=== PATIENT | female | born 1940 | race Caucasian/White ===

== ENCOUNTER → 2020-09-17 09:13 | Outpatient (BNVA) | payer MEDICARE, SELFPAY | PROVIDERS: Family Provider Registered Nurse; PCP Internal Medicine; Visit Provider Nurse Practitioner Family | DX: I50.9 Heart failure, unspecified (principal) | CPT/HCPCS: 80048 ==

== ENCOUNTER 2020-10-02 13:28 | Outpatient (CLI) | payer MEDICARE, SELFPAY ==
--- NOTE | 2020-10-02 13:30 | USCV_ITS ---
Genaro Aparicio Age: 80 Gender: F : 1940 Exam Date: 10/02/2020 13:27 Ordering Phys: Bisi Garcia Technologist: [place] [facility] [place]ication: PVD RIGHT LEFT Brachial 142.00 mmHg Brachial 146.00 mmHg Pressure (mmHg) Waveform Pressure (mmHg) Waveform 169.00 LINE LOCATOR 171.00 153.00 DPA 145.00 1.16 Ankle/Brachial Index 1.17 81.00 Pre-Exercise Toe Pressure 73.00 0.55 Pre-Exercise Toe/Brachial Index 0.50 FINDINGS Normal resting ABIs bilaterally Diminished resting TBIs bilaterally CONCLUSIONS Normal resting ABIs with abnormal resting TBIs, suggestive of bilateral mild to moderate peripheral artery disease possibly involving the distal vessels Dr Svetlana Abarca MD FAC (Electronically Signed) Final Date: 02 October 2020 20:21 S
--- NOTE | 2020-10-02 14:15 | USCV_ITS ---
Genaro Aparicio Age: 80 Gender: F : 1940 Exam Date: 10/02/2020 13:38 Ordering Phys: Bisi Garcia Technologist: Alexia Ross Exam Location: [facility] [place] Indication: HEART FAILURE BP: 146 / 84 HR: 74 Rhythm: Sinus Technical Quality: Suboptimal MEASUREMENTS (Male / Female) Normal Values 2D ECHO LV Diastolic Diameter PLAX 5.6 cm 4.2 - 5.9 / 3.9 - 5.3 cm LV Chamber Size 3.9 cm IVS Diastolic Thickness 0.9 cm 0.6 - 1.0 / 0.6 - 0.9 cm LVPW Diastolic Thickness 1.3 cm 0.6 - 1.0 / 0.6 - 0.9 cm RV Chamber Size 3.8 cm LVOT Diameter 2.0 cm LV Ejection Fraction MOD 2C 9.3 % LV Ejection Fraction 2C AL 9.2 % LA Diameter 4.2 cm LA Width 4.0 cm LA Height 4.5 cm RA Width 2.7 cm RA Height 3.1 cm Aorta at Sinotubular Diameter 2.4 cm M-MODE LV Diastolic Diameter MM 7.2 cm 4.2 - 5.9 / 3.9 - 5.3 cm LV Systolic Diameter MM 6.1 cm LV Ejection Fraction MM Teich 31.0 % IVS Diastolic Thickness MM 0.7 cm 0.6 - 1.0 / 0.6 - 0.9 cm IVS Systolic Thickness MM 1.1 cm LVPW Diastolic Thickness MM 0.9 cm 0.6 - 1.0 / 0.6 - 0.9 cm LVPW Systolic Thickness MM 0.9 cm Aortic Annulus Diameter 2.6 cm LA Ao Ratio MM 1.6 MV E Point Septal Separation 1.3 cm DOPPLER AV Peak Velocity 338.0 cm/s LVOT Peak Velocity 116.0 cm/s AV Area Cont Eq vti 1.2 cm squared AV Area Cont Eq pk 1.1 cm squared MV Area PHT 5.0 cm squared Mitral E to A Ratio 1.6 MV E' Velocity 61.0 cm/s Mitral E to MV E' Ratio 14.0 Mitral E to LV E' Lateral Ratio 14.6 Mitral E to LV E' Septal Ratio 13.7 TR Peak Velocity 311.0 cm/s TR Peak Gradient 38.7 mmHg TV Peak E Velocity 75.0 cm/s Right Atrial Pressure 3.0 mmHg Pulmonary Artery Systolic Pressu 41.7 mmHg PV Peak Velocity 79.0 cm/s RV Acceleration Time 0.1 s RV Ejection Time 0.3 s RV AcT/ET 0.3 FINDINGS Left Ventricle Moderately dilated left ventricle. Severely decreased left ventricular function. Left ventricular ejection fraction is estimated at 20 %. Global left ventricular hypokinesis. Abnormal septal motion consistent with conduction abnormality. Grade II diastolic dysfunction, moderately elevated filling pressures. Right Ventricle Upper normal right ventricular size and low normal systolic function. Right ventricular systolic pressure 41.7 mmHg. Right Atrium Normal right atrial size. Right atrial pressure estimated at 8 mmHg. Left Atrium Moderately increased left atrial size. Mitral Valve Moderate mitral annular calcification. Mildly thickened mitral valve. Restricted movement of posterior mitral leaflet. No mitral valve stenosis. Mild to moderate posteriorly directed mitral valve regurgitation. Aortic Valve Markedly thickened and calcified trileaflet aortic valve. Aortic valve stenosis visually appears to be severe. Possibly severe aortic valve stenosis, peak velocity 3.5 m/s, peak gradient 50 mmHg, mean gradient 20.5 mmHg, AMELIA 0.9 cm squared. Aortic valve index of 0.5 cm squared/m squared. Dimensionless valve index of 0.26. Stroke-volume index of 33 mL/m squared/beat. Tricuspid Valve Structurally normal tricuspid valve. Moderate tricuspid valve regurgitation. Pulmonic Valve Structurally normal pulmonic valve. No pulmonary valve stenosis. Mild pulmonary valve regurgitation. Pericardium No pericardial effusion. Aorta Normal size aortic root and proximal ascending aorta. CONCLUSIONS 1. Moderately dilated left ventricle. Severely decreased left ventricular function. Left ventricular ejection fraction is estimated at 20 %. Global left ventricular hypokinesis. Grade II diastolic dysfunction, moderately elevated filling pressures. 2. Upper normal right ventricular size and low normal systolic function. 3. Mild pulmonary hypertension with pulmonary artery pressure estimated at 42 mmHg. 4. Restricted movement of posterior mitral leaflet. Mild to moderate posteriorly directed mitral valve regurgitation. 5. Possibly severe aortic valve stenosis, peak velocity 3.5 m/s, peak gradient 50 mmHg, mean gradient 20.5 mmHg, AMELIA 0.9 cm squared (LVOT=21 mm). Aortic valve index of 0.5 cm squared/m squared. Dimensionless valve index of 0.26. Stroke-volume index of 33 mL/m squared/beat. 6. Moderate tricuspid valve regurgitation. 7. When compared to previous echocardiogram dated 06/28/2017, aortic valve stenosis has worsened and left ventricular systolic function has dropped. Georgiana Jensen MD (Electronically Signed) Final Date: 07 October 2020 18:22 S
== END 2020-10-02 13:29 | disposition home or self-care (01) ==
PROVIDERS: PCP Registered Nurse; Visit Provider Nurse Practitioner Family
DX: I73.9 Peripheral vascular disease, unspecified (principal); I50.9 Heart failure, unspecified; I27.0 Primary pulmonary hypertension; I08.3 Combined rheumatic disorders of mitral, aortic and tricuspid valves
CPT/HCPCS: 93306; 93922

== ENCOUNTER 2020-10-08 11:11 | Inpatient (IN) | payer MEDICARE, SELFPAY ==
[2020-10-08 11:15] VITALS: BP 135/87; PULSE 86; RESP 14; O2SAT 97; BMI 38.0
--- NOTE | 2020-10-08 11:34 | CT_ITS ---
WS: [id number] CT HEAD TECHNIQUE: Noncontrast CT of the head obtained from the skullbase to the vertex. CLINICAL INFORMATION: altered mental status COMPARISON: None. DLP: 908.[address] scans at [facility] use at least one of these dose optimization techniques: automat ed exposure control; mA and/or kV adjustment per patient size (includes targeted exams where dose is matched to clinical indication); or iterative reconstruction. FINDINGS: No evidence of intracranial hemorrhage or mass effect. Ventricular system and basal cisterns are young nt. Moderate small vessel changes with moderate parenchymal volume loss. 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 Chronic lacunar infarcts in the left cerebellum. Intracra nial vascular calcification. No extra-axial fluid collections. No evidence of mass or mass effect. Paranasal sinuses and mastoid air cells are well aerated. .Normal visualized soft tissues. CT/CT head wo con* [id number] IMPRESSION: 1. No evidence of intracranial hemorrhage or mass effect. 2. Moderate small vessel changes. Moderate parenchymal volume loss. 3. Chronic lacunar infarcts in the right basal ganglia and right thalamus. 4. Chronic lacunar infarcts left greater than right cerebellum. 5. No acute intracranial findings. Notified Fili Schuler MD at 10/08/2020 12:22 PM.
--- NOTE | 2020-10-08 11:34 | XR_ITS ---
WS: [id number] Exam: XR chest 1V portable [id number] Date/Time of Exam: 10/08/2020 11:40 AM Reason For Exam: altered mental status. H/o CHF Comparison 07/05/2017. The lungs are fully expanded. There are chronic changes in the mid and lower left lung zone. No acute consolidating pneumonia is noted. No pleural effusion. Heart size is top limits normal. Signs of pre vious cardiac surgery and median sternotomy. XR/XR chest 1V portable [id number] IMPRESSION: 1. Chronic interstitial changes seen in the mid and lower left lung zone. 2. No acute cardiopulmonary finding. No change.
--- NOTE | 2020-10-08 11:40 | ECG_ITS ---
[facility] Test Date: 2020-10-08 Pat Name: Genaro Aparicio Department: Room: Gender: Female Physician Chief Of Pathology: : 1940 Requested By: Fili Schuler Order Number: [id number] Leal MD: Svetlana Abarca M.D. Measurements Intervals [place]all Rate: 61 P: 98 WA: 152 QRS: -17 QRSD: 142 T: 100 QT: 435 QTc: 439 Interpretive Statements SINUS RHYTHM INTRAVENTRICULAR CONDUCTION DELAY [130+ ms QRS DURATION] Compared to ECG 07/05/2017 11:13:41 ST (T wave) deviation no longer present Electronically Signed On 10-08-2020 23:49:[address] CONTRACTOR by Svetlana Abarca M.D. [id number]
--- NOTE | 2020-10-08 11:46 | ED_ITS ---
HPI - Altered Mental Status General: Chief Complaint: Altered Mental Status Stated Complaint: ACUTE MENTAL STATUS CHANGE, SENT FROM [facility] Time Seen by Provider: 10/08/20 11:15 History of Present Illness: HPI narrative: The patient is a 80-year-old female with past medical history CHF, CAD, peripheral edema, history of [place], CABG, and PCI. She also has diabetes, hypertension, and aortic stenosis. She comes to the ER sent by her molding machine setter during a visit as he noted her to be less responsive than usual, noted abdominal distention and he noted jaundice in her face. He has been seeing her for shortness of breath. In the ER she denies chest pain and shortness of breath but does admit being generally weak the patient's daughter says she is not acting like her usual self and has had a steady decline for the past for 5 days. She noted that she ate ham on and has since had worsening of her swelling bilaterally in her lower extremities. MD complaint: altered mental status, confusion and decreased responsiveness Onset (ago): day(s) (5) Timing confirmed by: family member Severity: moderate Review of Systems General: Reports: ROS unobtainable due to mental status (altered) Narrative: She denies chest pain, shortness of breath, nausea, vomiting, diarrhea, abdominal pain. Review of systems limited due to her altered mental status and decreased responsiveness. Admits swelling to legs as well bilaterally. Card: Reports: edema and swelling of feet/ankles; Denies: chest pain [facility] ED PFSH: Medical History Coronary artery disease Essential (primary) hypertension Headache, migraine Hx of myocardial infarction Hyperlipidemia, unspecified Hyperthyroidism Restless legs syndrome Type 2 diabetes mellitus without complications Surgical History History of coronary artery bypass graft CABG [id number] Family History Other CAD (coronary artery disease) Hypertension Myocardial infarct Social History (Updated 10/08/20 @ 11:21 by Trino Larose RN) Smoking and tobacco status: never smoked Alcohol intake: current Alcohol intake frequency: holidays/special occasions only Physical Exam Const: COMMON NORMALS: healthy appearing, alert (Slightly decreased responsiveness and confusion present) and well nourished GENERAL APPEARANCE: cooperative and comfortable ORIENTATION/CONSCIOUSNESS: Yes oriented to person, Yes oriented to place and Yes confused HENMT: COMMON NORMALS: normocephalic, external ears normal and Normal external nose present HEAD & SCALP: normal to inspection and normocephalic NOSE: Normal external nose present EXTERNAL EAR: Yes external ears normal MOUTH: Normal oral and palatal mucosa present THROAT: posterior oropharynx normal Eye: COMMON NORMALS: Equal, round and reactive pupils present and EOMs intact bilaterally GENERAL EYE: appearance normal, both eyes and all related structures PUPIL: Yes Equal, round and reactive pupils present Neck/C-Spine: COMMON NORMALS: full ROM, no lymphadenopathy, no meningeal signs and no JVD GENERAL: Yes normal visual inspection Lymph: LYMPHATIC: no lymphadenopathy noted Chest: COMMONS NORMALS: normal inspection of the chest and normal palpation of entire chest wall Resp: COMMON NORMALS: normal respiratory effort, No retractions, No use of accessory muscles, clear to auscultation bilaterally and percussion normal EFFORT & INSPECTION: Yes able to speak in complete sentences AUSCULTATION: clear to auscultation bilaterally and diminished lung sounds PERCUSSION: percussion normal Cardio: COMMON NORMALS: no JVD, regular rate, regular rhythm, S1 normal heart sound present, S2 normal heart sound present and Peripheral pulses 2+ throughout RATE: regular rate RHYTHM: regular rhythm HEART SOUNDS: S1 normal heart sound present and S2 normal heart sound present PERIPHERAL PULSES: Peripheral pulses 2+ throughout OTHER: Systolic murmur 2 out of 6 present. EOMI aortic stenosis GI: COMMON NORMALS: Soft to palpation, non-tender and no masses INSPECTION: Yes normal to inspection PALPATION: Yes Soft to palpation OTHER: Mild abdominal distention. Soft, nontender. : COMMON NORMALS: Yes no CVA tenderness BLADDER/KIDNEY EXAM: Yes no CVA tenderness Back/Pelvis: COMMON NORMALS: no CVA tenderness, thoracic and lumbar spine normal to inspection, no thoracic nor lumbar tenderness and thoraco-lumbar ROM normal Extremity: COMMON NORMALS: normal to inspection, full ROM, capillary refill normal, no joint enlargement and no pedal edema GENERAL: Yes normal exam except as noted OTHER: 2+ pitting edema to knees bilaterally. This is a chronic thing but worse than her baseline per family member. Neuro: COMMON NORMALS: CN's II-XII intact bilaterally, moves all extremities, no focal motor deficits and no sensory deficits noted SENSORIUM/ORIENTATION: Yes oriented to person, Yes oriented to place and Yes somnolent MENINGEAL SIGNS: Yes no meningeal signs SPEECH: speech normal GAIT: Yes Unable to assess gait MOTOR EXAM: 5/5 motor strength present throughout (3-4 out of 5 in all extremities. No focal weakness noted) Psych: COMMON NORMALS: cooperative, normal affect and speech normal ATTITUDE: Yes calm SPEECH: Yes normal speech Skin: COMMON NORMALS: no rashes or lesions noted GENERAL SKIN EXAM: no rashes or lesions noted Course Vital Signs: Vital signs: Vital Signs Pulse Rate 86 10/08/20 11:15 Respiratory Rate 14 10/08/20 11:15 Blood Pressure 135/87 10/08/20 11:15 Pulse Oximetry 97 10/08/20 11:15 MDM - Altered Mental Status MDM Narrative: Medical decision making narrative: The patient has 2+ pitting edema to her knees and some belly distention as well. Her BNP is over 40,000. Her clinical situation is likely a CHF exacerbation. Given 40 IV Lasix in the ER and discussed with Dr. Asif who accepts care. Also she has acute kidney injury possibly from cardiorenal syndrome versus other. Also she has elevated total bilirubin. Both of these problems were discussed with the hospitalist who takes over care. Differential Diagnosis: Differential diagnosis altered mental status: Likely altered mental status and delirium Lab Data: Labs: Lab Results 10/08/20 10/08/20 10/08/20 Range/Units 11:18 11:18 11:18 WBC 7.6 (4.0-10.0) 10^3/ uL RBC 3.35 L (4.1-5.3) 10^6/u L Hgb 10.5 L (11.5-15.3) g/dL Hct 34.8 L (37.0-47.0) % MCV 103.9 H (81-99) fL MCH 31.3 (28.0-34.0) pg MCHC 30.2 (30.0-36.0) g/dL RDW 19.6 H (12.1-15.1) % Plt Count 239 (130-400) 10^3/c mm MPV 10.4 (7.4-10.4) fL Neut % (Auto) 65.0 % Lymph % (Auto) 18.6 % [place] % (Auto) 11.6 % Eos % (Auto) 3.7 % Baso % (Auto) 0.7 % Neut # (Auto) 4.97 (1.8-7.7) 10^3/u L Lymph # (Auto) 1.4 (0.8-4.8) 10^3/u L [place] # (Auto) 0.9 (0.2-0.9) 10^3/u L Eos # (Auto) 0.3 (0.0-0.8) 10^3/u L Baso # (Auto) 0.1 (0.0-0.1) 10^3/u L Nucleated RBC % (a uto) 0 % Nucleated RBCs # 0.0 /100WBC D-Dimer 3.94 H (0-0.59) ug/mIFE U Specimen Type Sample Site ABG pH (7.35-7.45) ABG pCO2 (35-45) mmHg ABG pO2 (80.0-100.0) mmH g ABG HCO3 (22-26) mmol/L ABG O2 Saturation ABG Base Excess (-2.0-2.0) mmol/ L [place] Test A-a O2 Gradient (5-10) mmHg Hematocrit (37-47) % Hgb O2 Saturation (95-100) % Carboxyhemoglobin (0.4-20.1) %THgb Methemoglobin (0.4-1.5) % Total Hemoglobin (12-16) g/dL Ionized Calcium (1.1-1.4) mmol/L O2 Delivery Device FiO2 % Supply Chain Systems Manager ID Sodium 138 (136-145) mmol/L Potassium 4.5 (3.5-5.1) mmol/L Chloride 100 (98-107) mmol/L Carbon Dioxide 27 (22-29) mmol/L Anion Gap 15.5 (5-19) BUN 30 H (8-23) mg/dL Creatinine 1.7 H (0.5-0.9) mg/dL GFR Calculation Not Reportable Glucose 86 (65-115) mg/dL Calculated Osmolal ity 291 (285-295) mOsm/k g Lactate (0.5-2.2) mmol/L Calcium 9.6 (8.5-10.5) mg/dL Total Bilirubin 2.2 H (0.15-1.2) mg/dL AST 31 (0-32) U/L ALT 20 (0-33) U/L Alkaline Phosphata se 92 (35-105) IU/L Ammonia (11-51) umol/L Troponin T Baselin e (0-10) ng/L Troponin T 120 Min cocopah (0-10) ng/L Delta Troponin T (0-10) ABS# NT-Pro-B Natriuret Pep 21618 H (0-450) pg/mL Total Protein 7.0 (6.6-8.7) g/dL Albumin 4.0 (3.5-5.2) g/dL Globulin 3.0 (1.3-4.6) g/dL Urine Color (Yellow) Urine Appearance (CLEAR) Urine pH (5-7) Ur Specific Gravit y (1.005-1.030) Urine Protein (Negative) Urine Glucose (UA) (Normal) Urine Ketones (Negative) Urine Blood (Negative) Urine Nitrate (Negative) Urine Bilirubin (Negative) Urine Urobilinogen (Negative) mg/dL Ur Leukocyte Kalani ase (Negative) 10/08/20 10/08/20 10/08/20 Range/Units 11:18 11:18 11:40 WBC (4.0-10.0) 10^3/ uL RBC (4.1-5.3) 10^6/u L Hgb (11.5-15.3) g/dL Hct (37.0-47.0) % MCV (81-99) fL MCH (28.0-34.0) pg MCHC (30.0-36.0) g/dL RDW (12.1-15.1) % Plt Count (130-400) 10^3/c mm MPV (7.4-10.4) fL Neut % (Auto) % Lymph % (Auto) % [place] % (Auto) % Eos % (Auto) % Baso % (Auto) % Neut # (Auto) (1.8-7.7) 10^3/u L Lymph # (Auto) (0.8-4.8) 10^3/u L [place] # (Auto) (0.2-0.9) 10^3/u L Eos # (Auto) (0.0-0.8) 10^3/u L Baso # (Auto) (0.0-0.1) 10^3/u L Nucleated RBC % (a uto) % Nucleated RBCs # /100WBC D-Dimer (0-0.59) ug/mIFE U Specimen Type Sample Site ABG pH (7.35-7.45) ABG pCO2 (35-45) mmHg ABG pO2 (80.0-100.0) mmH g ABG HCO3 (22-26) mmol/L ABG O2 Saturation ABG Base Excess (-2.0-2.0) mmol/ L [place] Test A-a O2 Gradient (5-10) mmHg Hematocrit (37-47) % Hgb O2 Saturation (95-100) % Carboxyhemoglobin (0.4-20.1) %THgb Methemoglobin (0.4-1.5) % Total Hemoglobin (12-16) g/dL Ionized Calcium (1.1-1.4) mmol/L O2 Delivery Device FiO2 % Supply Chain Systems Manager ID Sodium (136-145) mmol/L Potassium (3.5-5.1) mmol/L Chloride (98-107) mmol/L Carbon Dioxide (22-29) mmol/L Anion Gap (5-19) BUN (8-23) mg/dL Creatinine (0.5-0.9) mg/dL GFR Calculation Glucose (65-115) mg/dL Calculated Osmolal ity (285-295) mOsm/k g Lactate 1.0 (0.5-2.2) mmol/L Calcium (8.5-10.5) mg/dL Total Bilirubin (0.15-1.2) mg/dL AST (0-32) U/L ALT (0-33) U/L Alkaline Phosphata se (35-105) IU/L Ammonia 23 (11-51) umol/L Troponin T Baselin e 34 H (0-10) ng/L Troponin T 120 Min cocopah (0-10) ng/L Delta Troponin T (0-10) ABS# NT-Pro-B Natriuret Pep (0-450) pg/mL Total Protein (6.6-8.7) g/dL Albumin (3.5-5.2) g/dL Globulin (1.3-4.6) g/dL Urine Color (Yellow) Urine Appearance (CLEAR) Urine pH (5-7) Ur Specific Gravit y (1.005-1.030) Urine Protein (Negative) Urine Glucose (UA) (Normal) Urine Ketones (Negative) Urine Blood (Negative) Urine Nitrate (Negative) Urine Bilirubin (Negative) Urine Urobilinogen (Negative) mg/dL Ur Leukocyte Kalani ase (Negative) 10/08/20 10/08/20 10/08/20 Range/Units 12:10 13:26 13:55 WBC (4.0-10.0) 10^3/ uL RBC (4.1-5.3) 10^6/u L Hgb (11.5-15.3) g/dL Hct (37.0-47.0) % MCV (81-99) fL MCH (28.0-34.0) pg MCHC (30.0-36.0) g/dL RDW (12.1-15.1) % Plt Count (130-400) 10^3/c mm MPV (7.4-10.4) fL Neut % (Auto) % Lymph % (Auto) % [place] % (Auto) % Eos % (Auto) % Baso % (Auto) % Neut # (Auto) (1.8-7.7) 10^3/u L Lymph # (Auto) (0.8-4.8) 10^3/u L [place] # (Auto) (0.2-0.9) 10^3/u L Eos # (Auto) (0.0-0.8) 10^3/u L Baso # (Auto) (0.0-0.1) 10^3/u L Nucleated RBC % (a uto) % Nucleated RBCs # /100WBC D-Dimer (0-0.59) ug/mIFE U Specimen Type Arterial Sample Site Radial, right ABG pH 7.39 (7.35-7.45) ABG pCO2 43.5 (35-45) mmHg ABG pO2 80.1 (80.0-100.0) mmH g ABG HCO3 26.3 H (22-26) mmol/L ABG O2 Saturation 95.6 ABG Base Excess 1.1 (-2.0-2.0) mmol/ L [place] Test Pos A-a O2 Gradient 2.2 L (5-10) mmHg Hematocrit 32.6 L (37-47) % Hgb O2 Saturation 94.6 L (95-100) % Carboxyhemoglobin 1.8 (0.4-20.1) %THgb Methemoglobin < 0.0 L (0.4-1.5) % Total Hemoglobin 10.6 L (12-16) g/dL Ionized Calcium 1.2 (1.1-1.4) mmol/L O2 Delivery Device Room air FiO2 21.0 % Supply Chain Systems Manager ID [place] Sodium 140.0 (136-145) mmol/L Potassium 4.1 (3.5-5.1) mmol/L Chloride (98-107) mmol/L Carbon Dioxide (22-29) mmol/L Anion Gap (5-19) BUN (8-23) mg/dL Creatinine (0.5-0.9) mg/dL GFR Calculation Glucose 87.0 (65-115) mg/dL Calculated Osmolal ity (285-295) mOsm/k g Lactate (0.5-2.2) mmol/L Calcium (8.5-10.5) mg/dL Total Bilirubin (0.15-1.2) mg/dL AST (0-32) U/L ALT (0-33) U/L Alkaline Phosphata se (35-105) IU/L Ammonia (11-51) umol/L Troponin T Baselin e (0-10) ng/L Troponin T 120 Min cocopah 29.55 H (0-10) ng/L Delta Troponin T -4.45 L (0-10) ABS# NT-Pro-B Natriuret Pep (0-450) pg/mL Total Protein (6.6-8.7) g/dL Albumin (3.5-5.2) g/dL Globulin (1.3-4.6) g/dL Urine Color Yellow (Yellow) Urine Appearance Clear (CLEAR) Urine pH 5 (5-7) Ur Specific Gravit y 1.015 (1.005-1.030) Urine Protein Neg (Negative) Urine Glucose (UA) Norm (Normal) Urine Ketones Negative (Negative) Urine Blood Neg (Negative) Urine Nitrate Negative (Negative) Urine Bilirubin Neg (Negative) Urine Urobilinogen 1 H (Negative) mg/dL Ur Leukocyte Kalani ase Negative (Negative) Discharge Plan Discharge Patient Disposition: Admitted As Inpatient Clinical Impression: Hyperbilirubinemia Mental status alteration Qualifiers: Altered mental status type: unspecified Qualified Code(s): R41.82 - Altered mental status, unspecified Acute exacerbation of CHF (congestive heart failure) Qualifiers: Heart failure type: unspecified Qualified Code(s): I50.9 - Heart failure, unspecified Acute renal failure Qualifiers: Acute renal failure type: unspecified Qualified Code(s): N17.9 - Acute kidney failure, unspecified Condition: Stable Coding Level of Care Code ED Conditioner Tumbler Operator for Chg Fwd Exam Comprehensive
[2020-10-08 11:47] LABS: Basophils # 0.1 10^3/uL (0.0-0.1); Basophils % 0.7 %; Eosinophils # 0.3 10^3/uL (0.0-0.8); Eosinophils % 3.7 %; Hematocrit 34.8 % (37.0-47.0); Hemoglobin 10.5 g/dL (11.5-15.3); Lymphocytes # 1.4 10^3/uL (0.8-4.8); Lymphocytes % 18.6 %; Mean Corpuscular HGB Conc 30.2 g/dL (30.0-36.0); Mean Corpuscular Hemoglobin 31.3 pg (28.0-34.0); Mean Corpuscular Volume 103.9 fL (81-99); Mean Platelet Volume 10.4 fL (7.4-10.4); Monocytes # 0.9 10^3/uL (0.2-0.9); Monocytes % 11.6 %; Neutrophils # 4.97 10^3/uL (1.8-7.7); Nucleated Red Blood Cells % 0 %; Platelet Count 239 10^3/cmm (130-400); Red Blood Count 3.35 10^6/uL (4.1-5.3); Red Cell Distribution Width 19.6 % (12.1-15.1); White Blood Count 7.6 10^3/uL (4.0-10.0)
[2020-10-08 12:05] LABS: D Dimer 3.94 ug/mIFEU (0-0.59)
[2020-10-08 12:10] LABS: Troponin(5th) Baseline 34 ng/L (0-10)
[2020-10-08 12:11] LABS: Ammonia 23 umol/L (11-51)
--- NOTE | 2020-10-08 12:19 | USCV_ITS ---
Genaro Aparicio Age: 80 Gender: F : 1940 Exam Date: 10/08/2020 12:31 Ordering Phys: Fili Schuler MD Technologist: Angelic Valdez Exam Location: [facility] [place] Indication: BLE swelling eval for dvt HISTORY: Lower extremity swelling. PROCEDURES: Venous duplex imaging was performed in bilateral lower extremities. The following venous structures were evaluated: common femoral vein, profunda vein, proximal portion of the greater saphenous vein, superficial femoral vein, and the popliteal vein. In addition, the posterior tibial veins were evaluated. In addition, the posterior tibial and peroneal trunk were evaluated. FINDINGS: Examination was technically limited due to body habitus. No evidence of DVT seen in any vessel visualized at this time. CONCLUSIONS No evidence of right lower extremity DVT. No evidence of left lower extremity DVT. Brandon Loyd MD (Electronically Signed) Final Date: 08 October 2020 15:35 S
[2020-10-08 12:20] LABS: Alanine Aminotransferase 20 U/L (0-33); Alkaline Phosphatase 92 IU/L (35-105); Anion Gap 15.5 (5-19); Aspartate Amino Transferase 31 U/L (0-32); Blood Urea Nitrogen 30 mg/dL (8-23); Calcium 9.6 mg/dL (8.5-10.5); Carbon Dioxide 27 mmol/L (22-29); Chloride 100 mmol/L (98-107); Glucose 86 mg/dL (65-115); NT Pro B Type Natriuretic Pept 24308 pg/mL (0-450); Osmolality Calculated 291 mOsm/kg (285-295); Potassium 4.5 mmol/L (3.5-5.1); Sodium 138 mmol/L (136-145); Total Bilirubin 2.2 mg/dL (0.15-1.2)
[2020-10-08 12:22] LABS: ABG PCO2 43.5 mmHg (35-45); ABG PH Result 7.39 (7.35-7.45); Alveolar-Arterial Oxygen Gradi 2.2 mmHg (5-10); Arterial Blood Gas Hematocrit 32.6 % (37-47); Base Excess ABG 1.1 mmol/L (-2.0-2.0); Blood Gas Allen Test Pos; Blood Gas Operator Identificat MONRO; Blood Gas Sample Site Radial, right; Blood Gas Sample Type Arterial; Carboxyhemoglobin 1.8 %THgb (0.4-20.1); HCO3 ABG 26.3 mmol/L (22-26); HGB O2 Sat 94.6 % (95-100); Ionized Calcium Level - ABG 1.2 mmol/L (1.1-1.4); Methemoglobin < 0.0 % (0.4-1.5); Oxygen Device ROOM AIR; Oxygen Saturation ABG 95.6; PO2 ABG 80.1 mmHg (80.0-100.0); Potassium Level - ABG 4.1 mmol/L (3.5-5.0); Total Hemoglobin 10.6 g/dL (12-16)
--- NOTE | 2020-10-08 13:40 | ECG_ITS ---
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 Measurements Intervals [place] Rate: 80 P: 53 OR: 188 QRS: -23 QRSD: 150 T: 128 QT: 392 QTc: 454 Interpretive Statements SINUS RHYTHM LEFT BUNDLE BRANCH BLOCK [120+ ms QRS DURATION, 80+ ms Q/S IN V1/V2, 85+ ms R IN I/aVL/V5/V6] Compared to ECG 10/08/2020 13:54:29 Sinus bradycardia no longer present Electronically Signed On 10-09-2020 0:10:31 DIGITAL MARKETING CONSULTANT by Svetlana Abarca M.D. [email or web address]
[2020-10-08 13:48] LABS: Add Urine Microscopic? NO
[2020-10-08 13:53] LABS: Bilirubin Urine Neg (Negative); Blood Urine Neg (Negative); Glucose Urine UA Norm (Normal); Ketones Urine Negative (Negative); Leukocyte Esterase Urine Negative (Negative); Nitrate Urine Negative (Negative); Protein Urine Neg (Negative); Specific Gravity, Urine 1.015 (1.005-1.030); Urine Appearance Clear (CLEAR); Urine Color Yellow (Yellow); Urobilinogen Urine 1 mg/dL (Negative); pH Urine 5 (5-7)
[2020-10-08 14:27] LABS: Troponin 5 2HR 29.55 ng/L (0-10)
[2020-10-08 14:28] LABS: Troponin 5 2HR Delta -4.45 ABS# (0-10)
[2020-10-08] MEDS: FUROsemide 10 mg/mL SDV 4mL 40 MG IVP (14:54)
--- NOTE | 2020-10-08 16:39 | P.HP_ITS ---
Providers/Chief Complaint Primary Care Provider: TIMMY York Chief Complaint: ACUTE MENTAL STATUS CHANGE, SENT FROM [facility] History of Present Illness 80-year-old female with a past medical history significant for anxiety, depres lyndsay, restless leg syndrome, hypothyroidism, hypertension, dyslipidemia, diabetes mellitus, peripheral neuropathy, CVA in 2017, coronary artery disease with history of CABG, and chronic systolic heart failure with and EF of 50% with moderate aortic valve stenosis (AMELIA 1.6cm2) in 2017 which had significantly to an EF of 20% with now severe aortic stenosis (AMELIA 0.5 cm2) who presented to the hospital with altered mental status. She was initially seen for follow up at CHF clinic. Pt was seeing the nurse practitioner routinely for adjustment of diuretics due to fluid retention. Apparently she was noted to be confused as well today Which was more than patients baseline. Per daughter who was at bedside noted progressive change in mental status. She stated that she has some good days and some bad days. Today she was not able to recognize family members. Has also noted some dizziness and increase bilateral lower extremity edema. No reported chest pain. No recent fever, chills, nausea vomiting. No abdominal pain diarrhea constipation. This review of systems was provided but patients family. Laboratory workup on arrival showed a WBC of 7.6, hemoglobin at 10.4, hematocrit 34.8 and platelet count of 239. D-dimer was elevated at 3.94. Arterial blood gases showed a pH of 7.39, pCO2 43.5, PO2 of 80.1 and a bicarb 26.3. Sodium 138, potassium 4.5, chloride 100, bicarb 27, BUN 30 and creatinine 1.7. Most recently this was 1.3 on 09/17/2020. Initial troponin baseline was 34 with a repeat at 120 minutes of 29.5. ProBNP was elevated 24,308. urinalysis was negative. Chest x-ray did not show any acute abnormality however chronic interstitial changes were seen in both mid and lower left lung. Head CT was then performed which did not show any evidence of acute intra-cranial hemorrhage or mass effect. Chronic lacunar infarcts were seen in right basal ganglia, thalamus and B/L cerebellum. Venous duplex did not show any evidence of right/left DVT. In ER patient was given Lasix 40 mg IV x1. Review of Systems General: Reports: ROS unobtainable due to mental status (ROS in HPI provided by daughter at bedside. ) Medications/Allergies Home Medications Medication Instructions Recorded Confirmed Last Taken Type CBD See Rx Instructions .ROUTE .COMPLEX 09/10/20 10/08/20 10/08/20 History aspirin 81 mg tablet,delayed 81 mg PO DAILY@2200 09/10/20 10/08/20 10/07/20 History release atorvastatin 40 mg tablet 40 mg PO DAILY@0800 09/10/20 10/08/20 10/08/20 History cholecalciferol (vitamin D3) 50 50 mcg PO DAILY@0800 09/10/20 10/08/20 10/08/20 History mcg (2,000 unit) capsule clopidogrel 75 mg tablet 75 mg PO DAILY@0800 09/10/20 10/08/20 10/08/20 History duloxetine 30 mg capsule,delayed 30 mg PO DAILY@0800 09/10/20 10/08/20 10/08/20 History release gabapentin 300 mg capsule See Rx Instructions .ROUTE 09/10/20 10/08/20 10/08/20 History .COMPLEX cap irbesartan 300 mg tablet 300 mg PO DAILY@0800 09/10/20 10/08/20 10/08/20 History metoprolol succinate 100 mg 100 mg PO DAILY@0800 09/10/20 10/08/20 10/08/20 History tablet,extended release 24 hr ropinirole 0.25 mg tablet 0.5 mg PO DAILY@0 09/10/20 10/08/20 10/07/20 History vitamin B comp and C no.3 15 mg-10 1 cap PO DAILY@0800 09/10/20 10/08/20 10/08/20 History mg-50 mg-5 mg-300 mg capsule potassium chloride 10 mEq See Rx Instructions .ROUTE 09/11/20 10/08/20 10/08/20 Rx capsule,extended release .COMPLEX #180 cap OxyContin 1 tab PO Q8H PRN 10/08/20 10/08/20 10/07/20 History acetaminophen [Tylenol 8 Hour] 650 mg PO Q8H PRN 10/08/20 10/08/20 10/07/20 History furosemide 40 mg PO DAILY@0800 10/08/20 10/08/20 10/08/20 History levothyroxine 150 mcg PO DAILY@0800 10/08/20 10/08/20 10/08/20 History Allergies Allergy/AdvReac Type Severity Reaction Status Date / Time No Known Allergies Allergy Verified 10/08/20 10:24 PFSH Acute PFSH: Medical History Coronary artery disease Essential (primary) hypertension Headache, migraine Hx of myocardial infarction Hyperlipidemia, unspecified Hyperthyroidism Restless legs syndrome Type 2 diabetes mellitus without complications Surgical History History of coronary artery bypass graft CABG x4, 1999 Family History Other CAD (coronary artery disease) Hypertension Myocardial infarct Social History (Updated 10/08/20 @ 11:21 by Trino Larose RN) Smoking and tobacco status: never smoked Alcohol intake: current Alcohol intake frequency: holidays/special occasions only Vitals/I&O/Wt Last Vital Signs Pulse 86 10/08/20 11:15 Resp 14 10/08/20 11:15 BP 135/87 10/08/20 11:15 Pulse Ox 97 10/08/20 11:15 Weight last 48 hrs Weight 97.522 kg Physical Exam Narrative: EXAM NARRATIVE: General- alert however confused HEENT -grossly unremarkable Chest- nonlabored respiration CVS- systolic murmur Abdomen -nondistended Extremities- 2+ bilateral lower extremity edema pitting Data : 10/08/20 11:18 10/08/20 11:18 Micro: Microbiology 10/08/20 13:55 Blood Culture - Preliminary Blood SPECIMEN COLLECTED 10/08/20 11:18 Blood Culture - Preliminary Blood SPECIMEN COLLECTED A&P Assessment and plan (1) Acute exacerbation of CHF (congestive heart failure): Status: Acute Qualifiers: Heart failure type: unspecified Qualified Code(s): I50.9 - Heart failure, unspecified (2) Acute renal failure: Status: Acute Qualifiers: Acute renal failure type: unspecified Qualified Code(s): N17.9 - Acute kidney failure, unspecified (3) Mental status alteration: Status: Acute Qualifiers: Altered mental status type: unspecified Qualified Code(s): R41.82 - Altered mental status, unspecified (4) Peripheral vascular disease: Status: Acute (5) Moderate aortic stenosis: Status: Acute (6) Lower extremity edema: Status: Acute Acute worsening of chronic combined heart failure / Severe Aortic stenosis - 10/02 ECHO - > EF of 20%, Severe AMELIA of 0.5cm2 - This was a significant decline from 2017 echo - ProBNP of 24,308 , Troponin 34 - Repeat pending - S/P lasix 40 mg IV x1 in ER - Will cautiously diereses wtih 40 IV daily - Monitor daily weight / Stict input & output recording - Cardiology consulted Acute on chronic encephalopathy - Etiology unclear - Likely component of undiagnosed dementia - UA - no evidence of infectious process - Chest x-ray - no acute abnormality - Afebrile - no leukocytosis - Will check pro-calcitonin in am - Bedside swallow prior to diet Acute on chronic kidney disease - Likely component of cardio-renal - Creatinine 1.7 - Hold Arb - Repeat BMP in am - May need Mcgrath - Renally dose meds - Consider renal US Elevated D-dimer - 3.94 - B/L LE venous Doppler - Negative - No respiratory issues - Consider V/Q scan vs CTA once renal function improves Hyperbilirubinemia - T.Bili - 2 - Likely due to traumatic hemolysis from severe - Repeat in am - LFT WNL Coronary artery disease s/p hx of CABG ( early 1999) - Aspirin 81 mg PO daily - Lipitor 40 mg PO daily - Metoprolol 50 mg PO daily - Troponin trend - Cardiology consulted. Hypertension - Metoprolol XL 100 mg PO daily Dyslipidemia - Lipitor 40 mg PO daily Diabetes mellitus - Sliding scale insulin - Diabetic diet pending bedside swallow Hypothyroidism - Levothyroxine 150 mcg PO daily - TSH in am Hx of CVA ( 2016 ) - Unclear if any residual deficits DVT ppx - Heparin 5000 units BID CODE STATUS: Limited: All measures except intubation. DNI only. D/w Daughter at bedside. Attestations Medical Necessity Statement*: Patient require over than 2 midnight stay in hospital for evaluation and treatment of altered mental status, heart failure exacerbation, acute on chronic renal sufficiency and severe aortic stenosis. Time Spent in Patient Care: Greater than 35 minutes (>than 50% of time spen t in counselling and/or direct pt care on unit) . Coding Level of Care Code Acute Tanker Service Attendant for Leanne Monterroso Diagnoses Acute exacerbation of CHF (congestive heart failure) I50.9 Heart failure type: unspecified Acute renal failure N17.9 Acute renal failure type: unspecified Mental status alteration R41.82 Altered mental status type: unspecified Peripheral vascular disease I73.9 Moderate aortic stenosis I35.0 Lower extremity edema R60.0
--- NOTE | 2020-10-08 17:40 | ECG_ITS ---
[facility] Test Date: 2020-10-08 Pat Name: Genaro Aparicio Department: Room: Gender: Female Associate Media Planner: : 1940 Requested By: Fili Schuler Order Number: [id number] Leal MD: Svetlana Abarca M.D. Measurements Intervals Farley Rate: 56 P: 51 NC: 185 QRS: -21 QRSD: 144 T: 96 QT: 470 QTc: 454 Interpretive Statements SINUS BRADYCARDIA LEFT BUNDLE BRANCH BLOCK [120+ ms QRS DURATION, 80+ ms Q/S IN V1/V2, 85+ ms R IN I/aVL/V5/V6] Compared to ECG 10/08/2020 12:19:14 Left bundle-branch block now present Sinus rhythm no longer present Intraventricular conduction delay no longer present Electronically Signed On 10-09-2020 0:02:44 CYTOLOGIST by Svetlana Abarca M.D. [email or web address]
[2020-10-08 18:08] LABS: Troponin 5 6HR 27.23 ng/L (0-10)
[2020-10-08 18:15] LABS: Troponin 5 6HR Delta -6.77 ng/L (0-12)
[2020-10-08 20:24] LABS: SARS Covid-2 Antigen Negative (Negative)
[2020-10-08 20:26] VITALS: BP 112/49; PULSE 72; O2SAT 92
[2020-10-08] MEDS: famotidine 20 mg/2 mL INJ IVP (21:13)
[2020-10-08] MEDS: aspirin 81 mg EC Tablet PO (21:14)
[2020-10-08] MEDS: heparin 5,000 unit/mL INJ 1 mL 5000 UNIT SUBCUT (21:14)
[2020-10-08] MEDS: ropinirole 0.25 mg Tablet 0.5 MG PO (21:15)
[2020-10-08 21:17] VITALS: O2SAT 92
--- NOTE | 2020-10-08 21:21 | PC.NURSE ---
Patient received from ED. Patient able to ambulate to bed with mod to max assist. Admission completed as documented. Patient medications given as ordered. Assisted up to [facility].
[2020-10-08 21:35] LABS: Glucose Point of Care 129 mg/dL (70-110)
[2020-10-08 21:42] VITALS: BP 147/83; PULSE 60; RESP 13; TEMP 36.7; O2SAT 99
[2020-10-08 21:52] VITALS: PULSE 63
[2020-10-08 23:28] VITALS: BP 134/69; PULSE 61; RESP 12; TEMP 36.6; O2SAT 95
[2020-10-09] VITALS (8 sets, daily range): BP systolic 114–153; BP diastolic 68–91; PULSE 64–85; RESP 10–28; TEMP 35.9–36.7; O2SAT 92–94
[2020-10-09] MEDS: acetaminophen 325 mg Tablet 650 MG PO ×2 (01:01→16:24)
[2020-10-09 04:50] LABS: Basophils # 0.1 10^3/uL (0.0-0.1); Basophils % 0.8 %; Eosinophils # 0.3 10^3/uL (0.0-0.8); Eosinophils % 3.8 %; Hematocrit 33.3 % (37.0-47.0); Lymphocytes # 1.1 10^3/uL (0.8-4.8); Lymphocytes % 14.3 %; Mean Corpuscular Hemoglobin 31.2 pg (28.0-34.0); Mean Corpuscular Volume 103.7 fL (81-99); Monocytes # 0.8 10^3/uL (0.2-0.9); Monocytes % 10.8 %; Nucleated Red Blood Cells % 0 %; Platelet Count 220 10^3/cmm (130-400); Red Blood Count 3.21 10^6/uL (4.1-5.3); Red Cell Distribution Width 19.7 % (12.1-15.1); White Blood Count 7.6 10^3/uL (4.0-10.0)
[2020-10-09 05:09] LABS: Anion Gap 18.1 (5-19); Blood Urea Nitrogen 31 mg/dL (8-23); Calcium 9.4 mg/dL (8.5-10.5); Carbon Dioxide 26 mmol/L (22-29); Chloride 99 mmol/L (98-107); Glucose 148 mg/dL (65-115); Magnesium 2.2 mg/dL (1.7-2.3); Osmolality Calculated 297 mOsm/kg (285-295); Potassium 4.1 mmol/L (3.5-5.1); Sodium 139 mmol/L (136-145)
[2020-10-09 05:18] LABS: Procalcitonin 0.12 ng/mL (0-0.5)
[2020-10-09 08:43] LABS: Glucose Point of Care 169 mg/dL (70-110)
[2020-10-09] MEDS: potassium chloride ER 20 mEq Tablet PO (08:58)
[2020-10-09] MEDS: levothyroxine 150 mcg Tablet PO (08:58)
[2020-10-09] MEDS: metoprolol succinate ER (24 HR) 100 mg Tablet 50 MG PO (08:58)
[2020-10-09] MEDS: clopidogrel 75 mg Tablet PO (08:58)
[2020-10-09] MEDS: atorvastatin 40 mg Tablet PO (08:58)
[2020-10-09] MEDS: heparin 5,000 unit/mL INJ 1 mL 5000 UNIT SUBCUT ×2 (08:59→20:14)
[2020-10-09] MEDS: duloxetine 30 mg Capsule PO (08:59)
[2020-10-09] MEDS: famotidine 20 mg/2 mL INJ IVP (08:59)
[2020-10-09] MEDS: FUROsemide 10 mg/mL SDV 4mL 40 MG IVP ×2 (09:04→17:34)
[2020-10-09 11:59] LABS: Glucose Point of Care 119 mg/dL (70-110)
--- NOTE | 2020-10-09 12:35 | P.CONIM_ITS ---
Providers/Reason For Consult Consulting Physican/Specialty*: Dr. Jensen, cardiology Reason for Consult*: Severe aortic stenosis, congestive heart failure Attending Physician: Seth Asif Primary Care Provider: TIMMY York History of Present Illness History of Present Illness Genaro Aparicio is a 80 year old female with past medical history of hypertension, multivessel CAD s/p CABG x4 in 1999 ([facility]: 08/2017 ADHIKARI to LAD patent, SVG to RCA is patent distal to the insertion with diffusely diseased 90% stenotic segment not amenable to intervention due to high calcification and small caliber, SVG to diagonal is patent, SVG to circumflex patent), history of MA, hyperlipidemia, type 2 diabetes mellitus, aortic stenosis with aortic valve area of 1.6 cm? and mean gradient of 9 mmHg by echo in 2017, history of migraines, restless leg syndrome, history of CVA in 2017, anxiety/depression and neuropathy was sent to the ER from cardiology clinic. She usually follows up with Dr. Patterson but has not seen him this year. Since the beginning of September she has had frequent office visits with our nurse practitioner Ms. Bisi Garcia. It seems like she has been not doing well at least for a month now with frequent falls difficulty standing up independently and dyspnea on exertion event when walking around the house. She also has worsening bilateral lower extremity swelling. The dose of Lasix was increased to 40 mg daily along with potassium 20 meq and echocardiogram was ordered. Echocardiogram was done and she was found to have severely decreased left ventricular ejection fraction of 20% which was new as compared to her last echo and low-flow low gradient severe aortic stenosis with peak velocity of 3.5 m/s, peak gradient of 50, mean gradient 21 and aortic valve area of 0.9 cm?. Normal resting ABIs (1.16 on right and 1.17 on left ) with abnormal resting TBI (0.55 on right and 0.50 on left ) suggestive of mild to moderate peripheral arterial disease and distal vessels was noted. As per daughter who had accompanied her to cardiology office yesterday, there was alteration in her mental status and she was sent to the ER for further evaluation. Laboratory workup on arrival showed a WBC of 7.6, hemoglobin at 10.4, hematocrit 34.8 and platelet count of 239. D-dimer was elevated at 3.94. Arterial blood gases showed a pH of 7.39, pCO2 43.5, PO2 of 80.1 and a bicarb 26.3. Sodium 138, potassium 4.5, chloride 100, bicarb 27, BUN 30 and creatinine 1.7. Most recently was 1.3 on 09/17/2020. Normal liver panel and ammonia level. Initial troponin baseline was 34 with a repeat at 120 minutes of 29.5 and at 6 hours of 27. ProBNP was elevated 24,308. urinalysis was negative. Rapid antigen testing for SARS-CoV-2 was negative. chest x-ray did not show any acute abnormality however chronic interstitial changes were seen in both mid and lower left lung. Head CT was then performed which did not show any evidence of acute intra- cranial hemorrhage or mass effect. Chronic lacunar infarcts were seen in right basal ganglia, thalamus and B/L cerebellum. Venous duplex did not show any evidence of right/left DVT. EKG showed sinus rhythm, normal axis. Left bundle branch block. She received Lasix 40 mg x 1 in the ER. Urine output of 750 mL with -390 mL. At the time of evaluation, her daughter is present at bedside. Patient states that she feels better as compared to when she came in. She does states that she had some chest pressure without any radiation yesterday. No fever no chills. No URI or UTI-like symptoms. Urine output since this morning 1050 mL. Review of Systems Const: Denies: fever(s) or chills Eyes: Denies: blurry vision ENMT: Denies: bleeding gums or epistaxis Card: Reports: chest pain, edema, swelling of feet/ankles, lightheadedness, pre-syncope and dyspnea on exertion; Denies: syncope or orthopnea Resp: Reports: dyspnea; Denies: productive cough, non-productive cough or wheezing GI: Denies: nausea, vomiting or hematochezia : Denies: difficulty voiding, dysuria or hematuria Musc: Reports: extremity swelling Skin/Breast: Denies: rash Neuro: Denies: headache(s) Psych: Denies: anxiety or depression Endo: Denies: polyuria Ariel/Lymph: Denies: easy bruising, easy bleeding, petechiae or purpura All/Imm: Denies: acute wheezing Meds/Allergies Home Medications and Allergies Home Medications Medication Instructions Recorded Confirmed Last Taken Type CBD See Rx Instructions .ROUTE .COMPLEX 09/10/20 10/08/20 10/08/20 History aspirin 81 mg tablet,delayed 81 mg PO DAILY@2200 09/10/20 10/08/20 10/07/20 History release atorvastatin 40 mg tablet 40 mg PO DAILY@0800 09/10/20 10/08/20 10/08/20 History cholecalciferol (vitamin D3) 50 50 mcg PO DAILY@0800 09/10/20 10/08/20 10/08/20 History mcg (2,000 unit) capsule clopidogrel 75 mg tablet 75 mg PO DAILY@0800 09/10/20 10/08/20 10/08/20 History duloxetine 30 mg capsule,delayed 30 mg PO DAILY@0800 09/10/20 10/08/20 10/08/20 History release gabapentin 300 mg capsule See Rx Instructions .ROUTE 09/10/20 10/08/20 10/08/20 History .COMPLEX cap irbesartan 300 mg tablet 300 mg PO DAILY@0800 09/10/20 10/08/20 10/08/20 History metoprolol succinate 100 mg 100 mg PO DAILY@0800 09/10/20 10/08/20 10/08/20 History tablet,extended release 24 hr ropinirole 0.25 mg tablet 0.5 mg PO DAILY@2200 09/10/20 10/08/20 10/07/20 History vitamin B comp and C no.3 15 mg-10 1 cap PO DAILY@0800 09/10/20 10/08/20 10/08/20 History mg-50 mg-5 mg-300 mg capsule potassium chloride 10 mEq See Rx Instructions .ROUTE 09/11/20 10/08/20 10/08/20 Rx capsule,extended release .COMPLEX #180 cap OxyContin 1 tab PO Q8H PRN 10/08/20 10/08/20 10/07/20 History acetaminophen [Tylenol 8 Hour] 650 mg PO Q8H PRN 10/08/20 10/08/20 10/07/20 History furosemide 40 mg PO DAILY@0800 10/08/20 10/08/20 10/08/20 History levothyroxine 150 mcg PO DAILY@0800 10/08/20 10/08/20 10/08/20 History Allergies Allergy/AdvReac Type Severity Reaction Status Date / Time No Known Allergies Allergy Verified 10/08/20 10:24 Current Medications Current Medications Generic Name Dose Route Start Last Admin Trade Name Chito PRN Reason Stop Dose Admin Acetaminophen 650 mg 10/08/20 16:41 10/09/20 01:01 Acetaminophen 325 Mg Tablet PO 650 mg Q6H PRN Administration Mild/Mod Pain Or Temp >/= 101 Aspirin 81 mg 10/08/20 22:00 10/08/20 21:14 Aspirin 81 Mg Ec Tablet PO 81 mg DAILY@2200 OSBALDO Administration Atorvastatin Calcium 40 mg 10/09/20 08:00 10/09/20 08:58 Atorvastatin 40 Mg Tablet PO 40 mg DAILY@0800 OSBALDO Administration Clopidogrel Bisulfate 75 mg 10/09/20 08:00 10/09/20 08:58 Clopidogrel 75 Mg Tablet PO 75 mg DAILY@0800 OSBALDO Administration Duloxetine HCl 30 mg 10/09/20 08:00 10/09/20 08:59 Duloxetine 30 Mg Capsule PO 30 mg DAILY@0800 OSBALDO Administration Furosemide 40 mg 10/09/20 10:00 10/09/20 09:04 Furosemide 10 Mg/Ml Sdv 4ml IVP 40 mg Q24H OSBALDO Administration Heparin Sodium (Beef Lung) 5,000 unit 10/08/20 21:00 10/09/20 08:59 Heparin 5,000 Unit/Ml Inj 1 Ml SUBCUT 5,000 unit Q12H OSBALDO Administration Insulin Aspart 0 unit 10/08/20 21:00 10/09/20 11:56 Insulin Aspart 100 Unit/1 Ml SUBCUT Not Given WM&BEDTIME [facility] Protocol Levothyroxine Sodium 150 mcg 10/09/20 08:00 10/09/20 08:58 Levothyroxine 150 Mcg Tablet PO 150 mcg DAILY@0800 OSBALDO Administration Metoprolol Succinate 50 mg 10/09/20 08:00 10/09/20 08:58 Metoprolol Succinate Er (24 Hr) 100 Mg Tablet PO 50 mg DAILY@0800 OSBALDO Administration Potassium Chloride 20 meq 10/09/20 09:00 10/09/20 08:58 Potassium Chloride Er 20 Meq Tablet PO 20 meq DAILY OSBALDO Administration Ropinirole HCl 0.5 mg 10/08/20 22:00 10/08/20 21:15 Ropinirole 0.25 Mg Tablet PO 0.5 mg DAILY@2200 OSBALDO Administration PFSH Acute PFSH: Medical History (Updated 10/09/20 @ 16:38 by Georgiana Jensen MD) Coronary artery disease Essential (primary) hypertension Headache, migraine Hx of myocardial infarction Hyperlipidemia, unspecified Hyperthyroidism Restless legs syndrome Type 2 diabetes mellitus without complications Surgical History History of coronary artery bypass graft CABG x1999 Family History Other CAD (coronary artery disease) Hypertension Myocardial infarct Social History Smoking and tobacco status: never smoked Alcohol intake: current Alcohol intake frequency: holidays/special occasions only Vitals/I&O/Wt Last Vital Signs Temp 96.6 F L 10/09/20 08:00 Pulse 64 10/09/20 08:00 Resp 28 H 10/09/20 08:00 BP 123/68 10/09/20 08:00 Pulse Ox 94 10/09/20 08:00 10/08/20 10/09/20 10/09/20 22:59 06:59 14:59 Intake Total 120 / 120 240 / 360 240 / 240 Output Total 350 / 350 400 / 750 150 / 150 Balance -230 / -230 -160 / -390 90 / 90 Weight last 48 hrs Weight 215 lb Physical Exam Narrative: EXAM NARRATIVE: GENERAL: Obese woman laying in bed in no acute distress HEENT: Extraocular movement intact. Pupils equal round reactive to light. No pallor or icterus. NECK: +JVD CARDIOVASCULAR SYSTEM: S1-S2 regular. No S3 or S4 present. Grade 3 on 6 right upper sternal border harsh systolic murmur with radiation to carotids. No rubs or gallops. RESPIRATORY SYSTEM: Chest clear to auscultation except at bilateral bases. No wheezes rhonchi or rubs heard. No use of accessory muscles. ABDOMEN: Soft, nontender and nondistended. Normal bowel sounds present. EXTREMITIES: No cyanosis or clubbing. 3+ edema extending above the knees. No signs of chronic venous insufficiency. MEDICAL ASSISTING INSTRUCTOR: Patient is alert oriented to self and time but not to place or person. No focal neurological deficits. SKIN: Normal turgor and temperature. No breakdown, rash or nail changes noted. PSYCH: Normal insight and judgment. Data Micro: Micro: Microbiology 10/08/20 11:18 Blood Culture - Pr eliminary Blood NEGATIVE TO SOFIE E 10/08/20 13:55 Blood Culture - Pr eliminary Blood SPECIMEN [facility] Imaging^: Other Imaging: Radiologist's impression: Coronary angiogram 19 August 2017 Conclusions Procedure Summary #1 Left main has luminal irregularities #2 LAD chronically 100% occluded in the proximal segment #3 LCx is chronically occluded in the proximal segment #4 RCA is chronically occluded in the mid Grafts #1 ADHIKARI to LAD is patent #2 SVG to RCA is patent distal to the insertion there is a diffusely diseased 90% stenotic segment not amenable to intervention due to high calcification and small caliber #3 SVG to diagonal is patent #4 SVG to circumflex is patent Other Data: Attestation for Other Data: I personally reviewed and interpreted the following: Other data: 10/02/20 Procedure(s): CV echo complete* [id number] CONCLUSIONS 1. Moderately dilated left ventricle. Severely decreased left ventricular function. Left ventricular ejection fraction is estimated at 20 %. Global left ventricular hypokinesis. Grade II diastolic dysfunction, moderately elevated filling pressures. 2. Upper normal right ventricular size and low normal systolic function. 3. Mild pulmonary hypertension with pulmonary artery pressure estimated at 42 mmHg. 4. Restricted movement of posterior mitral leaflet. Mild to moderate posteriorly directed mitral valve regurgitation. 5. Possibly severe aortic valve stenosis, peak velocity 3.5 m/s, peak gradient 50 mmHg, mean gradient 20.5 mmHg, AMELIA 0.9 cm squared (LVOT=21 mm). Aortic valve index of 0.5 cm squared/m squared. Dimensionless valve index of 0.26. Stroke-volume index of 33 mL/m squared/beat. 6. Moderate tricuspid valve regurgitation. 7. When compared to previous echocardiogram dated 06/28/2017, aortic valve stenosis has worsened and left ventricular systolic function has dropped. A&P Assessment and plan (1) Acute exacerbation of CHF (congestive heart failure): ACC/AHA Stage C, NYHA class III symptoms; -Increase Lasix to 40 mg IV twice a day. On metoprolol succinate 50 daily -Intake and output charting and daily weight. -Continue to closely monitor on telemetry Status: Acute Qualifiers: Heart failure type: unspecified Qualified Code(s): I50.9 - Heart failure, unspecified (2) Aortic stenosis, severe: Low-flow low gradient severe aortic stenosis. -She is not a candidate for SAVR. May be a candidate for transcatheter aortic valve replacement. -I had a long discussion with the patient and her daughter regarding the procedure, preprocedure testing and need for referral. All their questions and concerns were answered. -They have an upcoming appointment with Dr. Patterson in next few weeks. Status: Acute (3) Coronary artery disease: Continue aspirin and statin Status: Acute Qualifiers: Coronary Disease-Associated Artery/Lesion type: bypass graft [place] vs. transplanted heart: [place] heart Associated angina: without angina Qualified Code(s): I25.810 - Atherosclerosis of coronary artery bypass graft(s) without angina pectoris (4) Hyperlipidemia, unspecified: Status: Inactive Qualifiers: Hyperlipidemia type: mixed hyperlipidemia Qualified Code(s): E78.2 - Mixed hyperlipidemia (5) Mental status alteration: Status: Acute Qualifiers: Altered mental status type: unspecified Qualified Code(s): R41.82 - Altered mental status, unspecified Additional A&P Information JIMENA in setting of renal vascular congestion ; continue IV diuresis follow BMP Mild to moderate mitral regurgitation Moderate tricuspid valve regurgitation history of stroke: On aspirin and Plavix and statin Hypertension Obesity Weakness and fall : Possibly in setting of generalized deconditioning. Patient does mention that she has intermittent episodes of dizziness. Macrocytic anemia Hypothyroidism Neuropathy Restless leg syndrome Thank you for allowing me to participate in patient's care. Please call feel free to call with questions or concerns. Consult Attestations Medical Necessity Statement: Needs hospital stay for decompensated congestive heart failure Time Spent in Patient Care: Greater than 35 minutes (>than 50% of time spent in counselling and/or direct pt care on unit) . Coding Level of Care Code New Pt Acute Drop Forger for Leanne Monterroso Patient Type New History Comprehensive Exam Comprehensive Medical Decision Making High Complexity Diagnoses Acute exacerbation of CHF (congestive heart failure) I50.9 Heart failure type: unspecified Aortic stenosis, severe I35.0 Coronary artery disease I25.810 Coronary Disease-Associated Artery/Lesion type: bypass graft [place] vs. transplanted heart: [place] heart Associated angina: without angina Hyperlipidemia, unspecified E78.2 Hyperlipidemia type: mixed hyperlipidemia Mental status alteration R41.82 Altered mental status type: unspecified Time Spent (min) 45
--- NOTE | 2020-10-09 14:43 | P.PN_ITS ---
Subjective Subjective: Interval history: Patients mental status improved today, no chest pain. no fever, chills, nausea or vomiting Medications: Reviewed: Yes Vitals/I&O/Wt Last Vital Signs Temp 98.1 F 10/09/20 12:00 Pulse 84 10/09/20 12:00 Resp 19 H 10/09/20 12:00 BP 151/91 10/09/20 12:00 Pulse Ox 94 10/09/20 12:00 10/08/20 10/09/20 10/09/20 22:59 06:59 14:59 Intake Total 120 / 120 240 / 360 240 / 240 Output Total 350 / 350 400 / 750 150 / 150 Balance -230 / -230 -160 / -390 90 / 90 Weight last 48 hrs Weight 97.522 kg Physical Exam Narrative: EXAM NARRATIVE: General- alert awake, sitting at side of bed. NAD HEENT -grossly unremarkable Chest- nonlabored respiration CVS- systolic murmur Abdomen -nondistended Extremities- 2+ bilateral lower extremity edema pitting Data : 10/09/20 04:37 10/09/20 04:37 Micro: Microbiology 10/08/20 13:55 Blood Culture - Preliminary Blood NEGATIVE TO DATE 10/08/20 11:18 Blood Culture - Preliminary Blood NEGATIVE TO DATE A&P Assessment and plan (1) Acute exacerbation of CHF (congestive heart failure): Status: Acute Qualifiers: Heart failure type: unspecified Qualified Code(s): I50.9 - Heart failure, unspecified (2) Acute renal failure: Status: Acute Qualifiers: Acute renal failure type: unspecified Qualified Code(s): N17.9 - Acute kidney failure, unspecified (3) Mental status alteration: Status: Acute Qualifiers: Altered mental status type: unspecified Qualified Code(s): R41.82 - Altered mental status, unspecified (4) Peripheral vascular disease: Status: Acute (5) Moderate aortic stenosis: Status: Acute (6) Lower extremity edema: Status: Acute Acute worsening of chronic combined heart failure / Severe Aortic stenosis - 10/02 ECHO - > EF of 20%, Severe AMELIA of 0.5cm2 - This was a significant decline from 2017 echo - ProBNP of 24,308, delta trop - 27.3 - S/P lasix 40 mg IV x1 in ER - Increased lasix to 40 mg IV BID today - Repeat BMP in am - Monitor K level - Monitor daily weight / Stict input & output recording - Cardiology consulted Acute on chronic encephalopathy - Etiology unclear however improved today - Likely component of undiagnosed dementia - UA - no evidence of infectious process - Pro-calcitonin negative. - Chest x-ray - no acute abnormality - Afebrile - no leukocytosis Acute on chronic kidney disease - Likely component of cardio-renal - Creatinine 1.7 - 1.4 - Hold Arb - Repeat BMP in am - May need Mcgrath - Renally dose meds - Consider renal US if worsening - Need to monitor and document urine out put Elevated D-dimer - 3.94 - B/L LE venous Doppler - Negative - No respiratory issues - Consider V/Q scan vs CTA once renal function improves - Low suspicion of PE Hyperbilirubinemia - T.Bili - 2 - Likely due to traumatic hemolysis from severe - Repeat in am - LFT WNL Coronary artery disease s/p hx of CABG ( early 1999) - Aspirin 81 mg PO daily / Plavix 75 mg po daily - Lipitor 40 mg PO daily - Metoprolol 50 mg PO daily - Troponin trend - Cardiology consulted. Hypertension - Metoprolol XL 100 mg PO daily Dyslipidemia - Lipitor 40 mg PO daily Diabetes mellitus - Sliding scale insulin - Diabetic diet pending bedside swallow Hypothyroidism - Levothyroxine 150 mcg PO daily Hx of CVA ( 2016 ) - Unclear if any residual deficits - PT consult DVT ppx - Heparin 5000 units BID CODE STATUS: Limited: All measures except intubation. DNI only. D/w Daughter at bedside. Attestations Medical Necessity Statement*: Continue hospitalization for management of fluid overload requiring IV lasix Time Spent in Patient Care: Greater than 35 minutes (>than 50% of time spent in counselling and/or direct pt care on unit) . Coding Level of Care Code Acute Pathology Laboratory Aides Teacher for Chg Fwd Diagnoses Acute exacerbation of CHF (congestive heart failure) I50.9 Heart failure type: unspecified Acute renal failure N17.9 Acute renal failure type: unspecified Mental status alteration R41.82 Altered mental status type: unspecified Peripheral vascular disease I73.9 Moderate aortic stenosis I35.0 Lower extremity edema R60.0
--- NOTE | 2020-10-09 15:11 | PC.NURSE ---
patient appears more confused this afternoon after daughter departure, patient oriented to self at this time trying to get out of bed. Dr nguyen notified awaiting new instructions
[2020-10-09 17:11] LABS: Glucose Point of Care 176 mg/dL (70-110)
--- NOTE | 2020-10-09 20:02 | PC.NURSE ---
Patient becoming more confused, aggitated and aggressive. Patient keeps trying to get out of bed. Continuously up and down. High fall risk due to frequent falls at home. Removing telemetry and pulling at IV. 1:1 sitter present at bedside. Attempting redirection, with patient becoming more aggitated with this. Informed Dr Díaz and doctor placed order.
[2020-10-09] MEDS: aspirin 81 mg EC Tablet PO (20:14)
[2020-10-09] MEDS: OLANZapine 10 mg VIAL IM (20:14)
[2020-10-09] MEDS: ropinirole 0.25 mg Tablet 0.5 MG PO (20:14)
[2020-10-09] MEDS: famotidine 20 mg Tablet PO (20:14)
--- NOTE | 2020-10-09 21:07 | PC.NURSE ---
Addendum entered by Isis Montgomery RN 10/09/20 21:10: Patient has not slept in several days and appears to be fighting sleep at this time. Also made Dr Díaz aware of this. Original Note: Patient is increasingly restless. Confused. Continuously trying to climb out of bed. High fall risk. Patient is unable to hold her self up. Kicking legs. Zyprexa given as ordered. Informed Dr Díaz. Doctor placed new order for Haldol 5mg. Waiting for pharmacy to verify.
[2020-10-09] MEDS: haloperidol inj 5 mg/mL INJ 1 mL IM (21:14)
[2020-10-09 21:19] LABS: Glucose Point of Care 149 mg/dL (70-110)
--- NOTE | 2020-10-09 21:42 | PC.NURSE ---
Medications given as ordered. Patient remains restless. Keeps saying I want to get out of here. Does not appear to be worse due to medication administration just no improvement noted. Appears to be fighting medications and sleep. Dr Díaz on the floor. Informed him of patient behavior. Received a one time order for Ativan 0.5mg IVP if needed.
[2020-10-09] MEDS: LORazepam 2 mg/mL INJ 1 mL 0.5 MG IVP (22:02)
--- NOTE | 2020-10-09 22:26 | PC.NURSE ---
Ativan given as ordered. Patient is becoming more calm at this time. Appears to be trying to rest. 1:1 sitter remains at bedside.
[2020-10-10] VITALS (8 sets, daily range): BP systolic 101–139; BP diastolic 51–77; PULSE 62–79; RESP 15–24; TEMP 35.8–37.1; O2SAT 2–99
--- NOTE | 2020-10-10 00:40 | PC.NURSE ---
Patient not trying to get out of bed presently however is still restless. Moving arms and legs frequently. Calling for Yoshi . Remains confused, wanting to go home.
--- NOTE | 2020-10-10 02:04 | PC.NURSE ---
Addendum entered by Isis Montgomery RN 10/10/20 02:40: Performed straight cath using aseptic technique. Patient tolerated well and had 700ml of clear, yellow urine returned. Urine stream was very slow and took ~20-25minutes to drain bladder. Original Note: Patient wanting to get to [facility]. Attempted to get up x2 max assist. Patient unable to help. Informed Dr Díaz and received order for one time straight cath for now.
--- NOTE | 2020-10-10 02:52 | PC.NURSE ---
Patient becoming more restless and wanting out of bed. Will not leave telemetry in place and pulls at clothing trying to remove them. Informed Dr Díaz and doctor placed order for Seroquel 25mg PO. Waiting for Rx to verify.
[2020-10-10] MEDS: quetiapine 25 mg Tablet PO ×2 (02:57→21:22)
[2020-10-10 03:52] LABS: Basophils % 0.5 %; Eosinophils # 0.1 10^3/uL (0.0-0.8); Eosinophils % 1.1 %; Hematocrit 33.9 % (37.0-47.0); Hemoglobin 10.1 g/dL (11.5-15.3); Lymphocytes # 1.4 10^3/uL (0.8-4.8); Lymphocytes % 17.7 %; Mean Corpuscular HGB Conc 29.8 g/dL (30.0-36.0); Mean Corpuscular Hemoglobin 31.5 pg (28.0-34.0); Mean Corpuscular Volume 105.6 fL (81-99); Mean Platelet Volume 10.4 fL (7.4-10.4); Monocytes # 0.8 10^3/uL (0.2-0.9); Monocytes % 9.6 %; Neutrophils # 5.62 10^3/uL (1.8-7.7); Neutrophils % 70.8 %; Nucleated Red Blood Cells % 0 %; Platelet Count 227 10^3/cmm (130-400); Red Blood Count 3.21 10^6/uL (4.1-5.3); Red Cell Distribution Width 19.6 % (12.1-15.1); White Blood Count 7.9 10^3/uL (4.0-10.0)
[2020-10-10 04:23] LABS: Alanine Aminotransferase 22 U/L (0-33); Albumin Level 3.7 g/dL (3.5-5.2); Alkaline Phosphatase 88 IU/L (35-105); Aspartate Amino Transferase 40 U/L (0-32); Blood Urea Nitrogen 32 mg/dL (8-23); Calcium 9.6 mg/dL (8.5-10.5); Carbon Dioxide 27 mmol/L (22-29); Chloride 102 mmol/L (98-107); Globulin 3.2 g/dL (1.3-4.6); Glucose 83 mg/dL (65-115); Osmolality Calculated 300 mOsm/kg (285-295); Sodium 142 mmol/L (136-145); Total Bilirubin 2.3 mg/dL (0.15-1.2); Total Protein 6.9 g/dL (6.6-8.7)
--- NOTE | 2020-10-10 04:27 | PC.NURSE ---
Seroquel was given as ordered (see MAR). Patient was able to answer some questions appropriately however with mumbled speech. Patient finally became comfortable and fell asleep sometime after 0300.
[2020-10-10 07:33] LABS: Glucose Point of Care 83 mg/dL (70-110)
--- NOTE | 2020-10-10 09:07 | PC.NURSE ---
Dr Enciso on unit for assessment patient continues to be sleeping very hard after medications given to help with sleep through the night. patient does not arouse to touch or voice patient responds to painful stimuli however does not arouse. patients vital signs are stable. verbal instructions given to place a bruno for acute retention and hold PO medications. will continue to monitor
--- NOTE | 2020-10-10 10:42 | P.PN_ITS ---
Subjective Subjective: Interval history: 80-year-old female with a past medical history significant for anxiety, depression, restless leg syndrome, hypothyroidism, hypertension, dyslipidemia, diabetes mellitus, peripheral neuropathy, CVA in 2017, coronary artery disease with history of CABG, and chronic systolic heart failure with and EF of 50% with moderate aortic valve stenosis (AMELIA 1.6cm2) in 2017 which had significantly to an EF of 20% with now severe aortic stenosis (AMELIA 0.5 cm2) who presented to the hospital with altered mental status. She was initially seen for follow up at CHF clinic. Pt was seeing the nurse practitioner routinely for adjustment of diuretics due to fluid retention. Apparently she was noted to be confused as well today Which was more than patients baseline. Per daughter who was at bedside noted progressive change in mental status. She stated that she has some good days and some bad days. Today she was not able to recognize family members. Has also noted some dizziness and increase bilateral lower extremity edema. No reported chest pain. No recent fever, chills, nausea vomiting. No abdominal pain diarrhea constipation. This review of systems was provided but patients family. Laboratory workup on arrival showed a WBC of 7.6, hemoglobin at 10.4, hematocrit 34.8 and platelet count of 239. D-dimer was elevated at 3.94. Arterial blood gases showed a pH of 7.39, pCO2 43.5, PO2 of 80.1 and a bicarb 26.3. Sodium 138, potassium 4.5, chloride 100, bicarb 27, BUN 30 and creatinine 1.7. Most recently this was 1.3 on 09/17/2020. Initial troponin baseline was 34 with a repeat at 120 minutes of 29.5. ProBNP was elevated 24,308. urinalysis was negative. Chest x-ray did not show any acute abnormality however chronic interstitial changes were seen in both mid and lower left lung. Head CT was then performed which did not show any evidence of acute intra-cranial hemorrhage or mass effect. Chronic lacunar infarcts were seen in right basal ganglia, thalamus and B/L cerebellum. Venous duplex did not show any evidence of right/left DVT. In ER patient was given Lasix 40 mg IV x1. Upon admission to the hospital patient was seen by Cardiology. Was going to require outpatient workup for severe aortic stenosis. Lasix dose was continued at 40 mg IV b.i.d.. Respiratory status remained stable. She did not require supplemental oxygen initially. Mental status waxed and waned. She was noted to have sundowning. After she was given multiple antipsychotics and sedatives she did require 1 L of O2 via nasal cannula. Mcgrath catheter was placed. Did have significant urinary output after this. Subjective Patient was noted to have altered mental status last evening. Was given multiple doses of antipsychotics and benzodiazapine. Was very drowsy in am. Minimal urine output last night. Mcgrath catheter was placed. Medications: Reviewed: Yes Vitals/I&O/Wt Last Vital Signs Temp 98.7 F 10/10/20 07:40 Pulse 79 10/10/20 07:40 Resp 24 H 10/10/20 07:40 BP 126/70 10/10/20 07:40 Pulse Ox 92 10/10/20 07:40 10/09/20 10/10/20 10/10/20 22:59 06:59 14:59 Intake Total 360 / 840 Output Total 600 / 1550 700 / 2250 Balance -240 / -710 -700 / -1410 Weight last 48 hrs Weight 97.522 kg Physical Exam Narrative: EXAM NARRATIVE: General- drowsy HEENT -grossly unremarkable Chest- nonlabored respiration CVS- systolic murmur Abdomen -nondistended Extremities- 2+ bilateral lower extremity edema pitting Urinary Catheter Management^: Mcgrath: Cath Placed During This Visit: yes Urinary Catheter Date of Insertion: 10/10/20 Urinary Catheter Time of Insertion: 09:22 Data : 10/10/20 03:18 10/10/20 03:18 Micro: Microbiology 10/08/20 13:55 Blood Culture - Preliminary Blood NEGATIVE TO DATE 10/08/20 11:18 Blood Culture - Preliminary Blood NEGATIVE TO DATE A&P Assessment and plan (1) Acute exacerbation of CHF (congestive heart failure): Status: Acute Qualifiers: Heart failure type: unspecified Qualified Code(s): I50.9 - Heart failure, unspecified (2) Acute renal failure: Status: Acute Qualifiers: Acute renal failure type: unspecified Qualified Code(s): N17.9 - Acute kidney failure, unspecified (3) Mental status alteration: Status: Acute Qualifiers: Altered mental status type: unspecified Qualified Code(s): R41.82 - Altered mental status, unspecified (4) Peripheral vascular disease: Status: Acute (5) Moderate aortic stenosis: Status: Acute (6) Lower extremity edema: Status: Acute Acute worsening of chronic combined heart failure / Severe Aortic stenosis - 10/02 ECHO - > EF of 20%, Severe AMELIA of 0.5cm2 - This was a significant decline from 2017 echo - ProBNP of 24,308, delta trop - 27.3 - S/P lasix 40 mg IV x1 in ER - Lasix to 40 mg IV daily - decreased due to renal function - Avoid significant preload reduction - Repeat BMP in am - Monitor K level - Monitor daily weight / Stict input & output recording - Cardiology consulted - outpatient work up for Acute on chronic encephalopathy - Etiology unclear however improved today - Likely component of undiagnosed dementia - Sundowning - will start seroquel 25 mg PO qhs - UA - no evidence of infectious process - Pro-calcitonin negative. - Chest x-ray - no acute abnormality - Afebrile - no leukocytosis Acute on chronic kidney disease - Likely component of cardio-renal - Creatinine 1.7 - 1.4 -> 1.6 today - Will decrease to daily Lasix if cr worsening - Hold Arb - Repeat BMP in am - Renally dose meds - Consider renal US if worsening - Need to monitor and document urine out put - Mcgrath placed this am Elevated D-dimer - 3.94 - B/L LE venous Doppler - Negative - No respiratory issues - Consider V/Q scan vs CTA once renal function improves - Low suspicion of PE Hyperbilirubinemia - T.Bili - 2 - Likely due to traumatic hemolysis from severe - LFT WNL Coronary artery disease s/p hx of CABG ( early 1999) - Aspirin 81 mg PO daily / Plavix 75 mg po daily - Lipitor 40 mg PO daily - Metoprolol 50 mg PO daily - Cardiology consulted. Hypertension - Metoprolol XL 100 mg PO daily Dyslipidemia - Lipitor 40 mg PO daily Diabetes mellitus - Sliding scale insulin - Diabetic diet pending bedside swallow Hypothyroidism - Levothyroxine 150 mcg PO daily Hx of CVA ( 2016 ) - Unclear if any residual deficits - PT consult DVT ppx - Heparin 5000 units BID CODE STATUS: Limited: All measures except intubation. DNI only. D/w Daughter at bedside. Disposition : Will place consult for PT/OT, may consider home with home care vs SNF at discharge. Attestations Medical Necessity Statement*: Will require further hospitalization for m anagement of heart failure requiring IV Lasix Time Spent in Patient Care: Greater than 35 minutes (>than 50% of time spent in counselling and/or direct pt care on unit) . Coding Level of Care Code Acute Certified Master Locksmith for Chg Fwd Diagnoses Acute exacerbation of CHF (congestive heart failure) I50.9 Heart failure type: unspecified Acute renal failure N17.9 Acute renal failure type: unspecified Mental status alteration R41.82 Altered mental status type: unspecified Peripheral vascular disease I73.9 Moderate aortic stenosis I35.0 Lower extremity edema R60.0
[2020-10-10] MEDS: FUROsemide 10 mg/mL SDV 4mL 40 MG IVP ×2 (10:57→17:59)
[2020-10-10] MEDS: heparin 5,000 unit/mL INJ 1 mL 5000 UNIT SUBCUT ×2 (11:02→20:21)
[2020-10-10 11:56] LABS: Glucose Point of Care 80 mg/dL (70-110)
[2020-10-10 17:23] LABS: Glucose Point of Care 81 mg/dL (70-110)
--- NOTE | 2020-10-10 20:25 | PC.NURSE ---
Repositioned patient per patient request. Patient is more arousable at this time. Answers questions appropriately. Patient is becoming more restless. Will monitor closely for any changes.
[2020-10-10 21:10] LABS: Glucose Point of Care 92 mg/dL (70-110)
[2020-10-10] MEDS: ropinirole 0.25 mg Tablet 0.5 MG PO (21:22)
[2020-10-10] MEDS: famotidine 20 mg Tablet PO (21:22)
[2020-10-10] MEDS: aspirin 81 mg EC Tablet PO (21:22)
--- NOTE | 2020-10-10 21:28 | PC.NURSE ---
Patient awake, able to follow directions. Asking where she was. Reminded her she is in the hospital. Explained the bruno catheter to her. Patient expressed understanding. Patient wanting to watch television which was turned on for her. Able to administered PO medication. Patient given water and did well. Patient reports feeling some better. Will continue to monitor closely for increased confusion.
[2020-10-11] VITALS (9 sets, daily range): BP systolic 111–144; BP diastolic 62–91; PULSE 73–91; RESP 18–27; TEMP 36.3–36.7; O2SAT 91–96
[2020-10-11] MEDS: acetaminophen 325 mg Tablet 650 MG PO (02:29)
--- NOTE | 2020-10-11 02:57 | PC.NURSE ---
Patient awake c/o pain to back. Medication provided as ordered. Repositioned for comfort to right lateral side. Patient remains confused, pulling at clothes and trying to remove telemetry. Patient is able to follow directions.
[2020-10-11 06:19] LABS: Anion Gap 18.8 (5-19); Blood Urea Nitrogen 33 mg/dL (8-23); Calcium 9.3 mg/dL (8.5-10.5); Carbon Dioxide 27 mmol/L (22-29); Chloride 102 mmol/L (98-107); Glucose 104 mg/dL (65-115); Osmolality Calculated 306 mOsm/kg (285-295); Potassium 3.8 mmol/L (3.5-5.1); Sodium 144 mmol/L (136-145)
[2020-10-11 06:56] LABS: Glucose Point of Care 104 mg/dL (70-110)
[2020-10-11] MEDS: metoprolol succinate ER (24 HR) 100 mg Tablet 50 MG PO (08:25)
[2020-10-11] MEDS: FUROsemide 10 mg/mL SDV 4mL 40 MG IVP ×2 (08:25→17:58)
[2020-10-11] MEDS: famotidine 20 mg Tablet PO ×2 (08:25→21:20)
[2020-10-11] MEDS: potassium chloride ER 20 mEq Tablet PO (08:25)
[2020-10-11] MEDS: atorvastatin 40 mg Tablet PO (08:25)
[2020-10-11] MEDS: clopidogrel 75 mg Tablet PO (08:25)
[2020-10-11] MEDS: levothyroxine 150 mcg Tablet PO (08:25)
[2020-10-11] MEDS: duloxetine 30 mg Capsule PO (08:25)
[2020-10-11] MEDS: heparin 5,000 unit/mL INJ 1 mL 5000 UNIT SUBCUT ×2 (08:26→21:19)
--- NOTE | 2020-10-11 08:46 | PC.SOCIAL ---
*IMM* Patient received Important message from Medicare. Initialled and copy placed in chart, patient was gave the original.
--- NOTE | 2020-10-11 10:24 | PM.PN ---
Subjective Subjective: Interval history: Patient is doing well. No chest pain, shortness of breath or palpitations. She is diuresing well and is in negative 5L fluid balance. On 2 L O2. Vitals/I&O/Wt Last Vital Signs Temp 97.3 F L 10/11/20 08:00 Pulse 76 10/11/20 08:00 Resp 18 10/11/20 08:00 BP 136/65 10/11/20 08:00 Pulse Ox 93 10/11/20 08:00 10/10/20 10/11/20 10/11/20 22:59 06:59 14:59 Intake Total 480 / 480 Output Total 1350 / 2450 650 / 3100 Balance -1350 / -2450 -650 / -3100 480 / 480 Physical Exam Narrative: EXAM NARRATIVE: GENERAL: Obese woman laying in bed in no acute distress HEENT: Extraocular movement intact. Pupils equal round reactive to light. No pallor or icterus. NECK: +JVD CARDIOVASCULAR SYSTEM: S1-S2 regular. No S3 or S4 present. Grade 3 on 6 right upper sternal border harsh systolic murmur with radiation to carotids. No rubs or gallops. RESPIRATORY SYSTEM: Chest clear to auscultation except at bilateral bases. No wheezes rhonchi or rubs heard. No use of accessory muscles. ABDOMEN: Soft, nontender and nondistended. Normal bowel sounds present. EXTREMITIES: No cyanosis or clubbing. 2+ edema extending above the knees. No signs of chronic venous insufficiency. ROTARY ENGINE ASSEMBLER: Patient is alert oriented to self and time but not to place or person. No focal neurological deficits. SKIN: Normal turgor and temperature. No breakdown, rash or nail changes noted. PSYCH: Normal insight and judgment. Urinary Catheter Management^: Mcgrath: Cath Placed During This Visit: yes Reason for Continuing Indwelling Catheter: Accurate Measurement of Urinary Output in Critically Ill Patients Urinary Catheter Date of Insertion: 10/10/20 Urinary Catheter Time of Insertion: 09:22 Data : 10/10/20 03:18 10/11/20 04:40 A&P Assessment and plan (1) Acute exacerbation of CHF (congestive heart failure): ACC/AHA Stage C, NYHA class III symptoms; -Continue Lasix at 40 mg IV twice a day. On metoprolol succinate 50 daily -Intake and output charting and daily weight. -Continue to closely monitor on telemetry. Monitor renal function Status: Acute Qualifiers: Heart failure type: unspecified Qualified Code(s): I50.9 - Heart failure, unspecified (2) Aortic stenosis, severe: Low-flow low gradient severe aortic stenosis. -She is not a candidate for SAVR. May be a candidate for transcatheter aortic valve replacement. -Dr Jensen had a long discussion with the patient and her daughter regarding the procedure, preprocedure testing and need for referral. -They have an upcoming appointment with Dr. Patterson in next few weeks. Status: Acute (3) Coronary artery disease: Continue aspirin and statin Status: Acute Qualifiers: Coronary Disease-Associated Artery/Lesion type: bypass graft [place] vs. transplanted heart: [place] heart Associated angina: without angina Qualified Code(s): I25.810 - Atherosclerosis of coronary artery bypass graft(s) without angina pectoris (4) Hyperlipidemia, unspecified: Status: Inactive Qualifiers: Hyperlipidemia type: mixed hyperlipidemia Qualified Code(s): E78.2 - Mixed hyperlipidemia (5) Mental status alteration: Status: Acute Qualifiers: Altered mental status type: unspecified Qualified Code(s): R41.82 - Altered mental status, unspecified Additional A&P Information JIMENA in setting of renal vascular congestion ; continue IV diuresis follow BMP Mild to moderate mitral regurgitation Moderate tricuspid valve regurgitation history of stroke: On aspirin and Plavix and statin Hypertension Obesity Weakness and fall : Possibly in setting of generalized deconditioning. Patient does mention that she has intermittent episodes of dizziness. Macrocytic anemia Hypothyroidism Neuropathy Restless leg syndrome Thank you for allowing me to participate in patient's care. Please call feel free to call with questions or concerns. Attestations Medical Necessity Statement*: Care expected to cross 2 midnights. Coding Level of Care Code Acute Call Out Clerk for Leanne Fwd Diagnoses Acute exacerbation of CHF (congestive heart failure) I50.9 Heart failure type: unspecified Aortic stenosis, severe I35.0 Coronary artery disease I25.810 Coronary Disease-Associated Artery/Lesion type: bypass graft [place] vs. transplanted heart: [place] heart Associated angina: without angina Hyperlipidemia, unspecified E78.2 Hyperlipidemia type: mixed hyperlipidemia Mental status alteration R41.82 Altered mental status type: unspecified
[2020-10-11 12:11] LABS: Glucose Point of Care 129 mg/dL (70-110)
[2020-10-11 17:02] LABS: Glucose Point of Care 171 mg/dL (70-110)
[2020-10-11 20:27] LABS: Glucose Point of Care 157 mg/dL (70-110)
[2020-10-11] MEDS: ropinirole 0.25 mg Tablet 0.5 MG PO (21:19)
[2020-10-11] MEDS: quetiapine 25 mg Tablet PO (21:20)
[2020-10-11] MEDS: aspirin 81 mg EC Tablet PO (21:20)
--- NOTE | 2020-10-11 22:20 | P.PN_ITS ---
Subjective Subjective: Interval history: 80-year-old female with a past medical history significant for anxiety, depression, restless leg syndrome, hypothyroidism, hypertension, dyslipidemia, diabetes mellitus, peripheral neuropathy, CVA in 2017, coronary artery disease with history of CABG, and chronic systolic heart failure with and EF of 50% with moderate aortic valve stenosis (AMELIA 1.6cm2) in 2017 which had significantly to an EF of 20% with now severe aortic stenosis (AMELIA 0.5 cm2) who presented to the hospital with altered mental status. She was initially seen for follow up at CHF clinic. Pt was seeing the nurse practitioner routinely for adjustment of diuretics due to fluid retention. Apparently she was noted to be confused as well today Which was more than patients baseline. Per daughter who was at bedside noted progressive change in mental status. She stated that she has some good days and some bad days. Today she was not able to recognize family members. Has also noted some dizziness and increase bilateral lower extremity edema. No reported chest pain. No recent fever, chills, nausea vomiting. No abdominal pain diarrhea constipation. This review of systems was provided but patients family. Laboratory workup on arrival showed a WBC of 7.6, hemoglobin at 10.4, hematocrit 34.8 and platelet count of 239. D-dimer was elevated at 3.94. Arterial blood gases showed a pH of 7.39, pCO2 43.5, PO2 of 80.1 and a bicarb 26.3. Sodium 138, potassium 4.5, chloride 100, bicarb 27, BUN 30 and creatinine 1.7. Most recently this was 1.3 on 09/17/2020. Initial troponin baseline was 34 with a repeat at 120 minutes of 29.5. ProBNP was elevated 24,308. urinalysis was negative. Chest x-ray did not show any acute abnormality however chronic interstitial changes were seen in both mid and lower left lung. Head CT was then performed which did not show any evidence of acute intra-cranial hemorrhage or mass effect. Chronic lacunar infarcts were seen in right basal ganglia, thalamus and B/L cerebellum. Venous duplex did not show any evidence of right/left DVT. In ER patient was given Lasix 40 mg IV x1. Upon admission to the hospital patient was seen by Cardiology. Was going to require outpatient workup for severe aortic stenosis. Lasix dose was continued at 40 mg IV b.i.d.. Respiratory status remained stable. She did not require supplemental oxygen initially. Mental status waxed and waned. She was noted to have sundowning. After she was given multiple antipsychotics and sedatives she did require 1 L of O2 via nasal cannula. Mcgrath catheter was placed. Did have significant urinary output after this. Subjective Patient was noted to have altered mental status last evening. Was given multiple doses of antipsychotics and benzodiazapine. Was very drowsy in am. Minimal urine output last night. Mcgrath catheter was placed. 10/11/20 NO issues Medications: Reviewed: Yes Vitals/I&O/Wt Last Vital Signs Temp 97.9 F 10/11/20 19:36 Pulse 77 10/11/20 19:36 Resp 27 H 10/11/20 19:36 BP 138/81 10/11/20 19:36 Pulse Ox 96 10/11/20 19:36 10/11/20 10/11/20 10/11/20 06:59 14:59 22:59 Intake Total 720 / 720 240 / 960 Output Total 650 / 3100 300 / 300 950 / 1250 Balance -650 / -3100 420 / 420 -710 / -290 Physical Exam Narrative: EXAM NARRATIVE: General- drowsy HEENT -grossly unremarkable Chest- nonlabored respiration CVS- systolic murmur Abdomen -nondistended Extremities- 2+ bilateral lower extremity edema pitting Urinary Catheter Management^: Mcgrath: Cath Placed During This Visit: yes Reason for Continuing Indwelling Catheter: Accurate Measurement of Urinary Output in Critically Ill Patients Urinary Catheter Date of Insertion: 10/10/20 Urinary Catheter Time of Insertion: 09:22 Data : 10/10/20 03:18 10/11/20 04:40 A&P Assessment and plan (1) Acute exacerbation of CHF (congestive heart failure): Status: Acute Qualifiers: Heart failure type: unspecified Qualified Code(s): I50.9 - Heart failure, unspecified (2) Acute renal failure: Status: Acute Qualifiers: Acute renal failure type: unspecified Qualified Code(s): N17.9 - Acute kidney failure, unspecified (3) Mental status alteration: Status: Acute Qualifiers: Altered mental status type: unspecified Qualified Code(s): R41.82 - Altered mental status, unspecified (4) Peripheral vascular disease: Status: Acute (5) Moderate aortic stenosis: Status: Acute (6) Lower extremity edema: Status: Acute Acute worsening of chronic combined heart failure / Severe Aortic stenosis - 10/02 ECHO - > EF of 20%, Severe AMELIA of 0.5cm2 - This was a significant decline from 2017 echo - ProBNP of 24,308, delta trop - 27.3 - S/P lasix 40 mg IV x1 in ER - Lasix to 40 mg IV daily - decreased due to renal function - Avoid significant preload reduction - Repeat BMP in am - Monitor K level - Monitor daily weight / Stict input & output recording - Cardiology consulted - outpatient work up for Acute on chronic encephalopathy - Etiology unclear however improved today - Likely component of undiagnosed dementia - - will start seroquel 25 mg PO qhs - UA - no evidence of infectious process - Pro-calcitonin negative. - Chest x-ray - no acute abnormality - Afebrile - no leukocytosis Acute on chronic kidney disease - Likely component of cardio-renal - Creatinine 1.7 - 1.4 -> 1.6 today - Will decrease to daily Lasix if cr worsening - Hold Arb - Repeat BMP in am - Renally dose meds - Consider renal US if worsening - Need to monitor and document urine out put - Mcgrath placed this am Elevated D-dimer - 3.94 - B/L LE venous Doppler - Negative - No respiratory issues - Consider V/Q scan vs CTA once renal function improves - Low suspicion of PE Hyperbilirubinemia - T.Bili - 2 - Likely due to traumatic hemolysis from severe - LFT WNL Coronary artery disease s/p hx of CABG ( early 1999) - Aspirin 81 mg PO daily / Plavix 75 mg po daily - Lipitor 40 mg PO daily - Metoprolol 50 mg PO daily - Cardiology consulted. Hypertension - Metoprolol XL 100 mg PO daily Dyslipidemia - Lipitor 40 mg PO daily Diabetes mellitus - Sliding scale insulin - Diabetic diet pending bedside swallow Hypothyroidism - Levothyroxine 150 mcg PO daily Hx of CVA ( 2016 ) - Unclear if any residual deficits - PT consult DVT ppx - Heparin 5000 units BID CODE STATUS: Limited: All measures except intubation. DNI only. D/w Daughter at bedside. Disposition : Will place consult for PT/OT, may consider home with home care vs SNF at discharge. 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
[2020-10-12] VITALS (7 sets, daily range): BP systolic 117–152; BP diastolic 53–92; PULSE 70–86; RESP 14–28; TEMP 36.4–36.9; O2SAT 92–96
[2020-10-12 04:33] LABS: Basophils % 0.1 %; Eosinophils # 0.3 10^3/uL (0.0-0.8); Eosinophils % 4.8 %; Hematocrit 31.2 % (37.0-47.0); Hemoglobin 9.7 g/dL (11.5-15.3); Lymphocytes # 1.4 10^3/uL (0.8-4.8); Lymphocytes % 21.5 %; Mean Corpuscular HGB Conc 31.1 g/dL (30.0-36.0); Mean Corpuscular Hemoglobin 31.5 pg (28.0-34.0); Mean Corpuscular Volume 101.3 fL (81-99); Mean Platelet Volume 10.3 fL (7.4-10.4); Monocytes # 0.7 10^3/uL (0.2-0.9); Monocytes % 10.6 %; Neutrophils # 4.19 10^3/uL (1.8-7.7); Neutrophils % 62.7 %; Nucleated Red Blood Cells % 0 %; Platelet Count 215 10^3/cmm (130-400); Red Blood Count 3.08 10^6/uL (4.1-5.3); Red Cell Distribution Width 19.9 % (12.1-15.1); White Blood Count 6.7 10^3/uL (4.0-10.0)
[2020-10-12 05:12] LABS: Alanine Aminotransferase 19 U/L (0-33); Albumin Level 3.4 g/dL (3.5-5.2); Alkaline Phosphatase 80 IU/L (35-105); Anion Gap 14.2 (5-19); Aspartate Amino Transferase 33 U/L (0-32); Blood Urea Nitrogen 31 mg/dL (8-23); Calcium 9.3 mg/dL (8.5-10.5); Carbon Dioxide 32 mmol/L (22-29); Chloride 100 mmol/L (98-107); Globulin 3.1 g/dL (1.3-4.6); Glucose 107 mg/dL (65-115); Osmolality Calculated 303 mOsm/kg (285-295); Potassium 3.2 mmol/L (3.5-5.1); Sodium 143 mmol/L (136-145); Total Bilirubin 2.2 mg/dL (0.15-1.2); Total Protein 6.5 g/dL (6.6-8.7)
[2020-10-12 06:43] LABS: Glucose Point of Care 109 mg/dL (70-110)
--- NOTE | 2020-10-12 08:31 | P.PN_ITS ---
Subjective Subjective: Interval history: Patient seems much better today. Denies any complaints of chest pain, shortness of breath or palpitations. She has been diuresing well and creatinine is stable at 1.6. Vitals/I&O/Wt Last Vital Signs Temp 98.4 F 10/12/20 04:00 Pulse 74 10/12/20 06:00 Resp 18 10/12/20 04:00 BP 117/53 10/12/20 04:00 Pulse Ox 96 10/12/20 04:00 10/11/20 10/12/20 10/12/20 22:59 06:59 14:59 Intake Total 240 / 960 Output Total 950 / 1250 1775 / 3025 Balance -710 / -290 -1774 / -2064 Physical Exam Narrative: EXAM NARRATIVE: GENERAL: Obese woman laying in bed in no acute distress HEENT: Extraocular movement intact. Pupils equal round reactive to light. No pallor or icterus. NECK: +JVD CARDIOVASCULAR SYSTEM: S1-S2 regular. No S3 or S4 present. Grade 3 on 6 right upper sternal border harsh systolic murmur with radiation to carotids. No rubs or gallops. RESPIRATORY SYSTEM: Chest clear to auscultation except at bilateral bases. No wheezes rhonchi or rubs heard. No use of accessory muscles. ABDOMEN: Soft, nontender and nondistended. Normal bowel sounds present. EXTREMITIES: No cyanosis or clubbing. 2+ edema extending above the knees. No signs of chronic venous insufficiency. 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 No focal neurological deficits. SKIN: Normal turgor and temperature. No breakdown, rash or nail changes noted. PSYCH: Normal insight and judgment. Urinary Catheter Management^: Mcgrath: Cath Placed During This Visit: yes Reason for Continuing Indwelling Catheter: Accurate Measurement of Urinary Output in Critically Ill Patients Urinary Catheter Date of Insertion: 10/10/20 Urinary Catheter Time of Insertion: 09:22 Data : 10/12/20 03:40 10/12/20 03:40 A&P Assessment and plan (1) Acute exacerbation of CHF (congestive heart failure): ACC/AHA Stage C, NYHA class III symptoms; -Can downtitrate lasix to 20mg BID. On metoprolol succinate 50 daily. Can potentially switch to PO Lasix in 1-2 days. -Intake and output charting and daily weight. -Continue to closely monitor on telemetry. Monitor renal function Status: Acute Qualifiers: Heart failure type: unspecified Qualified Code(s): I50.9 - Heart failure, unspecified (2) Aortic stenosis, severe: Low-flow low gradient severe aortic stenosis. -She is not a candidate for SAVR. May be a candidate for transcatheter aortic valve replacement. -Dr Jensen had a long discussion with the patient and her daughter regarding the procedure, preprocedure testing and need for referral. -They have an upcoming appointment with Dr. Patterson in next few weeks. Status: Acute (3) Coronary artery disease: Continue aspirin and statin Status: Acute Qualifiers: Coronary Disease-Associated Artery/Lesion type: bypass graft [place] vs. transplanted heart: [place] heart Associated angina: without angina Qualified Code(s): I25.810 - Atherosclerosis of coronary artery bypass graft(s) without angina pectoris (4) Hyperlipidemia, unspecified: Status: Inactive Qualifiers: Hyperlipidemia type: mixed hyperlipidemia Qualified Code(s): E78.2 - Mixed hyperlipidemia (5) Mental status alteration: Status: Acute Qualifiers: Altered mental status type: unspecified Qualified Code(s): R41.82 - Altered mental status, unspecified Additional A&P Information JIMENA in setting of renal vascular congestion ; continue IV diuresis follow BMP Mild to moderate mitral regurgitation Moderate tricuspid valve regurgitation history of stroke: On aspirin and Plavix and statin Hypertension Obesity Weakness and fall : Possibly in setting of generalized deconditioning. Patient does mention that she has intermittent episodes of dizziness. Macrocytic anemia Hypothyroidism Neuropathy Restless leg syndrome Thank you for allowing me to participate in patient's care. Please call feel free to call with questions or concerns. Attestations Medical Necessity Statement*: Care expected to cross 2 midnights. Coding Level of Care Code Acute Transcription Typist for Leanne Monterroos Diagnoses Acute exacerbation of CHF (congestive heart failure) I50.9 Heart failure type: unspecified Aortic stenosis, severe I35.0 Coronary artery disease I25.810 Coronary Disease-Associated Artery/Lesion type: bypass graft [place] vs. transplanted heart: [place] heart Associated angina: without angina Hyperlipidemia, unspecified E78.2 Hyperlipidemia type: mixed hyperlipidemia Mental status alteration R41.82 Altered mental status type: unspecified
[2020-10-12 08:38] LABS: Glucose Point of Care 135 mg/dL (70-110)
[2020-10-12] MEDS: clopidogrel 75 mg Tablet PO (08:46)
[2020-10-12] MEDS: potassium chloride ER 20 mEq Tablet PO (08:46)
[2020-10-12] MEDS: metoprolol succinate ER (24 HR) 100 mg Tablet 50 MG PO (08:46)
[2020-10-12] MEDS: atorvastatin 40 mg Tablet PO (08:46)
[2020-10-12] MEDS: famotidine 20 mg Tablet PO ×2 (08:46→20:49)
[2020-10-12] MEDS: duloxetine 30 mg Capsule PO (08:46)
[2020-10-12] MEDS: levothyroxine 150 mcg Tablet PO (08:46)
[2020-10-12] MEDS: heparin 5,000 unit/mL INJ 1 mL 5000 UNIT SUBCUT ×2 (08:47→20:49)
[2020-10-12] MEDS: FUROsemide 10 mg/mL SDV 4mL 40 MG IVP ×2 (08:47→19:02)
[2020-10-12 11:53] LABS: Glucose Point of Care 189 mg/dL (70-110)
[2020-10-12 17:01] LABS: Glucose Point of Care 163 mg/dL (70-110)
[2020-10-12] MEDS: ropinirole 0.25 mg Tablet 0.5 MG PO (20:48)
[2020-10-12] MEDS: aspirin 81 mg EC Tablet PO (20:49)
[2020-10-12] MEDS: quetiapine 25 mg Tablet PO (20:49)
[2020-10-12 20:50] LABS: Glucose Point of Care 134 mg/dL (70-110)
--- NOTE | 2020-10-12 22:15 | P.PN_ITS ---
Subjective Subjective: Interval history: 80-year-old female with a past medical history significant for anxiety, depression, restless leg syndrome, hypothyroidism, hypertension, dyslipidemia, diabetes mellitus, peripheral neuropathy, CVA in 2017, coronary artery disease with history of CABG, and chronic systolic heart failure with and EF of 50% with moderate aortic valve stenosis (AMELIA 1.6cm2) in 2017 which had significantly to an EF of 20% with now severe aortic stenosis (AMELIA 0.5 cm2) who presented to the hospital with altered mental status. She was initially seen for follow up at CHF clinic. Pt was seeing the nurse practitioner routinely for adjustment of diuretics due to fluid retention. Apparently she was noted to be confused as well today Which was more than patients baseline. Per daughter who was at bedside noted progressive change in mental status. She stated that she has some good days and some bad days. Today she was not able to recognize family members. Has also noted some dizziness and increase bilateral lower extremity edema. No reported chest pain. No recent fever, chills, nausea vomiting. No abdominal pain diarrhea constipation. This review of systems was provided but patients family. Laboratory workup on arrival showed a WBC of 7.6, hemoglobin at 10.4, hematocrit 34.8 and platelet count of 239. D-dimer was elevated at 3.94. Arterial blood gases showed a pH of 7.39, pCO2 43.5, PO2 of 80.1 and a bicarb 26.3. Sodium 138, potassium 4.5, chloride 100, bicarb 27, BUN 30 and creatinine 1.7. Most recently this was 1.3 on 09/17/2020. Initial troponin baseline was 34 with a repeat at 120 minutes of 29.5. ProBNP was elevated 24,308. urinalysis was negative. Chest x-ray did not show any acute abnormality however chronic interstitial changes were seen in both mid and lower left lung. Head CT was then performed which did not show any evidence of acute intra-cranial hemorrhage or mass effect. Chronic lacunar infarcts were seen in right basal ganglia, thalamus and B/L cerebellum. Venous duplex did not show any evidence of right/left DVT. In ER patient was given Lasix 40 mg IV x1. Upon admission to the hospital patient was seen by Cardiology. Was going to require outpatient workup for severe aortic stenosis. Lasix dose was continued at 40 mg IV b.i.d.. Respiratory status remained stable. She did not require supplemental oxygen initially. Mental status waxed and waned. She was noted to have sundowning. After she was given multiple antipsychotics and sedatives she did require 1 L of O2 via nasal cannula. Mcgrath catheter was placed. Did have significant urinary output after this. Subjective Patient was noted to have altered mental status last evening. Was given multiple doses of antipsychotics and benzodiazapine. Was very drowsy in am. Minimal urine output last night. Mcgrath catheter was placed. 10/11/20 Noted ot have confusion overnight 10/12/20 No fever, chill, nausea or vomiting Patient was working well with therapy Medications: Reviewed: Yes Vitals/I&O/Wt Last Vital Signs Temp 97.6 F 10/12/20 08:00 Pulse 78 10/12/20 19:37 Resp 28 H 10/12/20 19:37 BP 152/84 10/12/20 19:37 Pulse Ox 92 10/12/20 19:37 10/12/20 10/12/20 10/12/20 06:59 14:59 22:59 Intake Total 600 / 600 240 / 840 Output Total 1775 / 3025 1250 / 1250 620 / 1870 Balance -1775 / -2065 -650 / -650 -380 / -1030 Physical Exam Narrative: EXAM NARRATIVE: General- Awake , alert HEENT -grossly unremarkable Chest- nonlabored respiration CVS- systolic murmur Abdomen -nondistended Extremities- 2+ bilateral lower extremity edema pitting Urinary Catheter Management^: Mcgrath: Cath Placed During This Visit: yes Reason for Continuing Indwelling Catheter: Accurate Measurement of Urinary Output in Critically Ill Patients Urinary Catheter Date of Insertion: 10/10/20 Urinary Catheter Time of Insertion: 09:22 Data : 10/12/20 03:40 10/12/20 03:40 A&P Assessment and plan (1) Acute exacerbation of CHF (congestive heart failure): Status: Acute Qualifiers: Heart failure type: unspecified Qualified Code(s): I50.9 - Heart failure, unspecified (2) Acute renal failure: Status: Acute Qualifiers: Acute renal failure type: unspecified Qualified Code(s): N17.9 - Acute kidney failure, unspecified (3) Mental status alteration: Status: Acute Qualifiers: Altered mental status type: unspecified Qualified Code(s): R41.82 - Altered mental status, unspecified (4) Peripheral vascular disease: Status: Acute (5) Moderate aortic stenosis: Status: Acute (6) Lower extremity edema: Status: Acute Acute worsening of chronic combined heart failure / Severe Aortic stenosis - 10/02 ECHO - > EF of 20%, Severe AMELIA of 0.5cm2 - This was a significant decline from 2017 echo - ProBNP of 24,308, delta trop - 27.3 - S/P lasix 40 mg IV x1 in ER - Lasix to 40 mg IV daily - decreased due to renal function - Avoid significant preload reduction - Repeat BMP in am - Monitor K level - Replace K - Monitor daily weight / Stict input & output recording - Cardiology consulted - outpatient work up for - Will change to PO in am Acute on chronic encephalopathy - improved - Etiology unclear however improved today - Likely component of undiagnosed dementia - Sundowning - will start seroquel 25 mg PO qhs - UA - no evidence of infectious process - Pro-calcitonin negative. - Chest x-ray - no acute abnormality - Afebrile - no leukocytosis Acute on chronic kidney disease - Likely component of cardio-renal - Creatinine 1.7 - 1.4 -> 1.6 today - Will decrease to daily Lasix if cr worsening - Hold Arb - Repeat BMP in am - Renally dose meds - Consider renal US if worsening - Need to monitor and document urine out put - Mcgrath placed this am Elevated D-dimer - 3.94 - B/L LE venous Doppler - Negative - No respiratory issues - Consider V/Q scan vs CTA once renal function improves - Low suspicion of PE Coronary artery disease s/p hx of CABG ( early 1999) - Aspirin 81 mg PO daily / Plavix 75 mg po daily - Lipitor 40 mg PO daily - Metoprolol 50 mg PO daily - Cardiology consulted. Hypertension - Metoprolol XL 100 mg PO daily Dyslipidemia - Lipitor 40 mg PO daily Diabetes mellitus - Sliding scale insulin - Diabetic diet pending bedside swallow Hypothyroidism - Levothyroxine 150 mcg PO daily Hx of CVA ( 2016 ) - Unclear if any residual deficits - PT consult DVT ppx - Heparin 5000 units BID CODE STATUS: Limited: All measures except intubation. DNI only. D/w Daughter at bedside. Disposition : Will place consult for PT/OT, may consider home with home care vs SNF at discharge. 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
[2020-10-13] MEDS: ziprasidone 20 mg/mL SDV IM (03:02)
[2020-10-13 04:00] VITALS: BP 149/89; PULSE 101; RESP 20; TEMP 36.8; O2SAT 94
[2020-10-13 06:24] LABS: Glucose Point of Care 142 mg/dL (70-110)
[2020-10-13 08:00] VITALS: BP 141/88; PULSE 104; RESP 20; O2SAT 91
--- NOTE | 2020-10-13 08:41 | P.PN_ITS ---
Subjective Subjective: Interval history: Patient is sleepy. Per the sitter, she was not able to sleep well overnight and was given medication to help with sleep. She has diuresed well and is 10 liters negative balance since admission. Vitals/I&O/Wt Last Vital Signs Temp 98.2 F 10/13/20 04:00 Pulse 104 H 10/13/20 08:00 Resp 20 H 10/13/20 08:00 BP 141/88 10/13/20 08:00 Pulse Ox 91 10/13/20 08:00 10/12/20 10/13/20 10/13/20 22:59 06:59 14:59 Intake Total 240 / 840 Output Total 620 / 1870 1300 / 3170 Balance -380 / -1030 -1300 / -2330 Physical Exam Narrative: EXAM NARRATIVE: GENERAL: Obese woman, sleepy and drowsy HEENT: Extraocular movement intact. Pupils equal round reactive to light. No pallor or icterus. NECK: +JVD CARDIOVASCULAR SYSTEM: S1-S2 regular. No S3 or S4 present. Grade 3 on 6 right upper sternal border harsh systolic murmur with radiation to carotids. No rubs or gallops. RESPIRATORY SYSTEM: Chest clear to auscultation except at bilateral bases. No wheezes rhonchi or rubs heard. No use of accessory muscles. ABDOMEN: Soft, nontender and nondistended. Normal bowel sounds present. EXTREMITIES: No cyanosis or clubbing. 1+ edema extending above the knees. No signs of chronic venous insufficiency. SALES INCENTIVE ANALYST: Patient is alert oriented to self and time but not to place or person. No focal neurological deficits. SKIN: Normal turgor and temperature. No breakdown, rash or nail changes noted. PSYCH: Normal insight and judgment. Urinary Catheter Management^: Mcgrath: Cath Placed During This Visit: yes Reason for Continuing Indwelling Catheter: Accurate Measurement of Urinary Output in Critically Ill Patients Urinary Catheter Date of Insertion: 10/10/20 Urinary Catheter Time of Insertion: 09:22 Data : 10/12/20 03:40 10/12/20 03:40 A&P Assessment and plan (1) Acute exacerbation of CHF (congestive heart failure): ACC/AHA Stage C, NYHA class III symptoms; -She can be switched to oral lasix. On metoprolol succinate 50 daily. . -Intake and output charting and daily weight. -Continue to closely monitor on telemetry. Monitor renal function Status: Acute Qualifiers: Heart failure type: unspecified Qualified Code(s): I50.9 - Heart failure, unspecified (2) Aortic stenosis, severe: Low-flow low gradient severe aortic stenosis. -She is not a candidate for SAVR. May be a candidate for transcatheter aortic valve replacement. -Dr Jensen had a long discussion with the patient and her daughter regarding the procedure, preprocedure testing and need for referral. -They have an upcoming appointment with Dr. Patterson in next few weeks. Status: Acute (3) Coronary artery disease: Continue aspirin and statin Status: Acute Qualifiers: Coronary Disease-Associated Artery/Lesion type: bypass graft [place] vs. transplanted heart: [place] heart Associated angina: without angina Qualified Code(s): I25.810 - Atherosclerosis of coronary artery bypass graft(s) without angina pectoris (4) Hyperlipidemia, unspecified: Status: Inactive Qualifiers: Hyperlipidemia type: mixed hyperlipidemia Qualified Code(s): E78.2 - Mixed hyperlipidemia (5) Mental status alteration: Status: Acute Qualifiers: Altered mental status type: unspecified Qualified Code(s): R41.82 - Altered mental status, unspecified Additional A&P Information JIMENA in setting of renal vascular congestion ; continue IV diuresis follow BMP Mild to moderate mitral regurgitation Moderate tricuspid valve regurgitation history of stroke: On aspirin and Plavix and statin Hypertension Obesity Weakness and fall : Possibly in setting of generalized deconditioning. Patient does mention that she has intermittent episodes of dizziness. Macrocytic anemia Hypothyroidism Neuropathy Restless leg syndrome Thank you for allowing me to participate in patient's care. Please call feel free to call with questions or concerns. Attestations Medical Necessity Statement*: Care expected to cross 2 midnights Coding Level of Care Code Acute Mechanical Commissioning Engineer for Leanne Fwd Diagnoses Acute renal failure N17.9 Acute renal failure type: unspecified Acute exacerbation of CHF (congestive heart failure) I50.9 Heart failure type: unspecified Aortic stenosis, severe I35.0 Coronary artery disease I25.810 Coronary Disease-Associated Artery/Lesion type: bypass graft [place] vs. transplanted heart: [place] heart Associated angina: without angina Hyperlipidemia, unspecified E78.2 Hyperlipidemia type: mixed hyperlipidemia Mental status alteration R41.82 Altered mental status type: unspecified
--- NOTE | 2020-10-13 08:58 | PC.NURSE ---
reports from off going shift, patient was stripping clothes off and pulling out IVs. patient was given medication to help with relaxation. patient not responsive only to painful stimuli patient unable to follow any directions or answer questions at this time. PO medications held due to altered state. also held novolog due not eating. vital signs are stable respiration even and non labored no s/s or pain or distress will continue to monitor and await further instruction from provider
[2020-10-13] MEDS: FUROsemide 10 mg/mL SDV 4mL 40 MG IVP (09:58)
[2020-10-13] MEDS: heparin 5,000 unit/mL INJ 1 mL 5000 UNIT SUBCUT (09:58)
[2020-10-13 11:51] LABS: Glucose Point of Care 122 mg/dL (70-110)
[2020-10-13 12:00] VITALS: BP 142/81; PULSE 81; RESP 24; O2SAT 93
[2020-10-13 14:00] VITALS: PULSE 80
--- NOTE | 2020-10-13 14:18 | PC.NURSE ---
Dr. Asif at bedside verbal instructions given to dc Mcgrath catheter
[2020-10-13 16:00] VITALS: BP 140/78; PULSE 84; RESP 18; O2SAT 95
--- NOTE | 2020-10-13 16:43 | PC.NURSE ---
patient continues to be sleepy this afternoon despite having discharge orders, daughter at bedside actively trying to wake up patient, patient will arouse and answer questions. however finding it very hard to stay awake. instructions to allow patient to wake up and void post bruno removal then discharge.
[2020-10-13 17:31] VITALS: BP 140/70; PULSE 85; RESP 18; O2SAT 95
--- NOTE | 2020-10-13 17:50 | PC.NURSE ---
Patient awoke and aroused ate supper walked to rest room with walker and min assistance to void; patient voided and walked back to wheel chair career discovery teacher Daughter at bedside anxious to take patient home. Daughter felt she would continue to get better at home verses here. Patient vital signs stable. discharge instructions provided and explained to daughter Staci; verbalized understanding. IV discontinued cath intact min bleeding noted dressing placed
[2020-10-13 18:11] LABS: Glucose Point of Care 134 mg/dL (70-110)
--- NOTE | 2020-10-13 22:26 | P.DS_ITS ---
Discharge Providers Date of Admission: 10/08/20 16:00 Date of Discharge: October 13, 2020 Attending Provider at Admission: Seth Asif Attending Provider at Discharge: Seth Asif Primary Care Provider: TIMMY York Diagnoses at Discharge Discharge Diagnosis (1) Acute exacerbation of CHF (congestive heart failure): Status: Acute Qualifiers: Heart failure type: unspecified Qualified Code(s): I50.9 - Heart failure, unspecified (2) Aortic stenosis, severe: Status: Acute (3) Coronary artery disease: Status: Acute Qualifiers: Coronary Disease-Associated Artery/Lesion type: bypass graft [place] vs. transplanted heart: [place] heart Associated angina: without angina Qualified Code(s): I25.810 - Atherosclerosis of coronary artery bypass graft(s) without angina pectoris (4) Hyperlipidemia, unspecified: Status: Inactive Qualifiers: Hyperlipidemia type: mixed hyperlipidemia Qualified Code(s): E78.2 - Mixed hyperlipidemia (5) Mental status alteration: Status: Acute Qualifiers: Altered mental status type: unspecified Qualified Code(s): R41.82 - Altered mental status, unspecified Reason for Visit Reason for Visit: ACUTE MENTAL STATUS CHANGE, SENT FROM [facility] Hospital Course 80-year-old female with a past medical history significant for anxiety, depression, restless leg syndrome, hypothyroidism, hypertension, dyslipidemia, diabetes mellitus, peripheral neuropathy, CVA in 2017, coronary artery disease with history of CABG, and chronic systolic heart failure with and EF of 50% with moderate aortic valve stenosis (AMELIA 1.6cm2) in 2017 which had sign ificantly to an EF of 20% with now severe aortic stenosis (AMELIA 0.5 cm2) who presented to the hospital with altered mental status. She was initially seen for follow up at CHF clinic. Pt was seeing the nurse practitioner routinely for adjustment of diuretics due to fluid retention. Apparently she was noted to be confused as well today Which was more than patients baseline. Per daughter who was at bedside noted progressive change in mental status. She stated that she has some good days and some bad days. Today she was not able to recognize family members. Has also noted some dizziness and increase bilateral lower extremity edema. No reported chest pain. No recent fever, chills, nausea vomiting. No abdominal pain diarrhea constipation. This review of systems was provided but patients family. Laboratory workup on arrival showed a WBC of 7.6, hemoglobin at 10.4, hematocrit 34.8 and platelet count of 239. D-dimer was elevated at 3.94. Arterial blood gases showed a pH of 7.39, pCO2 43.5, PO2 of 80.1 and a bicarb 26.3. Sodium 138, potassium 4.5, chloride 100, bicarb 27, BUN 30 and creatinine 1.7. Most recently this was 1.3 on 09/17/2020. Initial troponin baseline was 34 with a repeat at 120 minutes of 29.5. ProBNP was elevated 24,308. urinalysis was negative. Chest x-ray did not show any acute abnormality however chronic interstitial changes were seen in both mid and lower left lung. Head CT was then performed which did not show any evidence of acute intra-cranial hemorrhage or mass effect. Chronic lacunar infarcts were seen in right basal ganglia, thalamus and B/L cerebellum. Venous duplex did not show any evidence of right/left DVT. In ER patient was given Lasix 40 mg IV x1. Upon admission to the hospital patient was seen by Cardiology. Was going to require outpatient workup for severe aortic stenosis. Lasix dose was continued at 40 mg IV b.i.d.. Respiratory status remained stable. She did not require supplemental oxygen initially. Mental status waxed and waned. She was noted to have sundowning. After she was given multiple antipsychotics and sedatives she did require 1 L of O2 via nasal cannula. Mcgrath catheter was placed. Did have significant urinary output after this. Patient was noted to have altered mental status last evening. Was given multiple doses of antipsychotics and benzodiazapine. Was very drowsy in am. Minimal urine output last night. Mcgrath catheter was placed. Patient was seen by cardiology. Cotinued in IV diuretics during hospitalization. Noted significant improvement in respiratory status and edema. Family was wanting to take patient home as they felt this would greatly improve her mental status. She was cleared by cardiology, outpatient follow up was arranged. Discharged in stable condition. Physical Exam Narrative: EXAM NARRATIVE: General- Awake , alert HEENT -grossly unremarkable Chest- nonlabored respiration CVS- systolic murmur Abdomen -nondistended Extremities- 2+ bilateral lower extremity edema pitting- Improved Urinary Catheter Management^: Mcgrath: Cath Placed During This Visit: yes, but has since been removed by the nurse Reason for Continuing Indwelling Catheter: Acute Urinary Retention or Obstruction Urinary Catheter Date of Insertion: 10/10/20 Urinary Catheter Time of Insertion: 09:22 Date Urinary Catheter Removed: 10/13/20 Time Urinary Catheter Discontinued: 14:27 Discharge Data Data Completed and Pending: Completed Studies During Hospitalization Category Date Time Status CT head wo con* 7 0450 Urgent Cat Scan 10/08/20 11:34 Completed XR chest 1V gustavo ble [id number] Urgent Exams 10/08/20 11:34 [place] [id number] Urgent Ultrasound 10/08/20 12:19 Completed Vitals: Last Vital Signs Temp 98.2 F 10/13/20 04:00 Pulse 85 10/13/20 17:31 Resp 18 10/13/20 17:31 BP 140/70 10/13/20 17:31 Pulse Ox 95 10/13/20 17:31 Discharge Plan Discharge Patient Disposition: Home Health Service Condition: Stable Prescriptions: Discontinued metoprolol succinate 100 mg tablet extended release 24 hr 100 mg PO DAILY@0800 RF: 0 No Action morphine concentrate 100 mg/5 mL (20 mg/mL) solution 5 mg PO Q6H PRN (Reason: pain) Qty: 30 RF: 0 Lorazepam Intensol 2 mg/mL concentrate 0.5 mg PO Q8H PRN (Reason: agitation) Qty: 30 RF: 0 scopolamine base 1 mg over 3 days patch 3 day 1 patch transdermal Q3D PRN (Reason: secretions) Qty: 10 RF: 0 Discharge Orders: Discharge Order (Routine); Ordered 10/13/20 Ordered By: Seth Asif Other Ambulatory Orders: Basic Metabolic Panel (Routine) Timeframe: 2 Days Facility: [facility] - Location: Lab - Main Lab Ordered By: Seth Asif Referrals: Shanai Kennedy FNP [Primary Care Provider] - Patient Instructions: Metoprolol (By mouth), Heart Failure (DC), CHF Stoplight Discharge Attestations Time Spent in Discharge Care*: greater than 30 min Specific Discharge Activities: educating patient, educating and/or supporting family/caregiver, discussing with pcp/other providers, discussing with bilingual case manager/social workers/dc planners, documenting/other paperwork and evaluating patient/reviewing data Status at Discharge: Cognitive status at discharge: mildly impaired cognition , Behavioral status at discharge: can be uncooperative , Functional status at discharge: other assisted ambulation Overall status at discharge: patient is progressing back to baseline Quality Metrics Clinical Quality Measures During this hospital stay, did patient experience: None Coding Level of Care Code 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 transplanted heart: [place] heart Associated angina: without angina Hyperlipidemia, unspecified E78.2 Hyperlipidemia type: mixed hyperlipidemia Mental status alteration R41.82 Altered mental status type: unspecified
== END 2020-10-13 17:50 | disposition home health service (06) | DRG 291 ==
LOC: ER 16:04 → CSU 17:53
PROVIDERS: Admitting Provider Hospitalist; Emergency Provider Family Medicine; PCP Registered Nurse; Visit Provider Hospitalist
DX: I13.0 Hypertensive heart and chronic kidney disease with heart failure and stage 1 through stage 4 chronic kidney disease, or unspecified chronic kidney disease (principal); I50.43 Acute on chronic combined systolic (congestive) and diastolic (congestive) heart failure; N17.9 Acute kidney failure, unspecified; F41.8 Other specified anxiety disorders; G25.81 Restless legs syndrome; E03.9 Hypothyroidism, unspecified; N18.9 Chronic kidney disease, unspecified; E11.22 Type 2 diabetes mellitus with diabetic chronic kidney disease; E78.5 Hyperlipidemia, unspecified; E11.51 Type 2 diabetes mellitus with diabetic peripheral angiopathy without gangrene; E11.42 Type 2 diabetes mellitus with diabetic polyneuropathy; Z86.73 Personal history of transient ischemic attack (TIA), and cerebral infarction without residual deficits; I25.10 Atherosclerotic heart disease of native coronary artery without angina pectoris; Z95.1 Presence of aortocoronary bypass graft; I08.3 Combined rheumatic disorders of mitral, aortic and tricuspid valves; F03.90 Unspecified dementia, unspecified severity, without behavioral disturbance, psychotic disturbance, mood disturbance, and anxiety; E80.6 Other disorders of bilirubin metabolism; E66.9 Obesity, unspecified; Z68.38 Body mass index [BMI] 38.0-38.9, adult; D53.9 Nutritional anemia, unspecified
CPT/HCPCS: 12345; 36415; 36416; 36600; 51702; 70450; 71045; 80048; 80051; 80053; 81003; 82140; 82330; 82805; 82962; 83605; 83735; 83880; 84145; 84484; 85025; 85378; 87040; 87426; 93005; 93970; 94664; 96372; 97110; 97116; 97161; 97530; 99283; J1630; J1644; J1815; J1940; J2060; J3486; J3490

== ENCOUNTER 2020-10-17 08:41 | Observation (INO) | payer MEDICARE, SELFPAY ==
[2020-10-17] VITALS (57 sets, daily range): BP systolic 69–144; BP diastolic 34–84; PULSE 68–96; RESP 14–29; TEMP 36.6–37; O2SAT 71–100; BMI 31.8
--- NOTE | 2020-10-17 08:42 | CT_ITS ---
WS: [id number] CT HEAD NONCONTRAST HISTORY: syncope/unresponsive TECHNIQUE: Contiguous axial imaging performed through the brain in 2.5 mm imaging. Bone and soft tiss ue windows. Sagittal and coronal reformats reviewed. All CT scans at [facility] use at ast one of these dose optimization techniques: automated exposure control; mA and/or kV adjustment pe r patient size (includes targeted exams where dose is matched to clinical indication); or iterative r econstruction. DLP: 834.68 mGy.cm COMPARISON: 10/08/2020 Large acute RIGHT subdural hematoma with a maximum diameter 1.4 cm. Subdural hematoma extends from th e vertex over the lateral cerebrum to the temporal lobe. Significant sulcal effacement and edema in t he RIGHT cerebrum. 1.4 cm of midline shift to the RIGHT. Near complete effacement of the RIGHT latera l ventricle. No definite intraventricular blood at this time. Tiny focus of acute blood may be within a displaced sylvian fissure or parenchymal hemorrhage, best seen on image 26 of series 2. Paranasal sinuses: Small amount of fluid in the LEFT maxillary sinus. Mastoid air cells: Well pneumatized. Calvarium and scalp: Skull is intact with no soft tissue edema or swelling. Patient is intubated. CT/CT head wo con* [id number] IMPRESSION: 1. Large right-sided subdural hematoma resulting in 1.4 cm of midline shift to the LEFT with focal effacement and edema. 2. Tiny parenchymal hemorrhage in the region of the RIGHT basal ganglia. Notified the emergency room at 12:[address] Sanchez is aware of these finding s already.
--- NOTE | 2020-10-17 08:42 | XR_ITS ---
WS: [id number] Portable AP supine chest, 10/17/2020 Clinical Data: syncope Comparison: Portable chest, 10/08/2020. Findings: There is an endotracheal tube above the arianne. The heart is enlarged. There is a small lef t effusion. The right lung is clear. The pulmonary vascularity is not increased. No pneumonia or pneu mothorax is present. Midline sternotomy sutures and mediastinal clips from cardiac surgery are noted. Monitor leads on the chest wall. XR/XR chest 1V portable [id number] Impression: 1. Endotracheal tube above the arianne. 2. Cardiomegaly. 3. Small left pleural effusion.
--- NOTE | 2020-10-17 08:43 | ECG_ITS ---
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 Measurements Intervals [place] Rate: 72 P: 45 [place]: 161 QRS: 50 QRSD: 142 T: -41 QT: 453 QTc: 497 Interpretive Statements SINUS RHYTHM WITH OCCASIONAL ECTOPIC PREMATURE COMPLEXES INTRAVENTRICULAR CONDUCTION DELAY [130+ ms QRS DURATION] Compared to ECG 10/08/2020 17:58:11 Intraventricular conduction delay now present Left bundle-branch block no longer present Electronically Signed On 10-17-2020 20:43:57 ROUNDHOUSE WORKER by Georgiana Jensen M.D. [id number]
[2020-10-17 08:51] LABS: Basophils % 0.3 %; Eosinophils # 0.1 10^3/uL (0.0-0.8); Eosinophils % 1.1 %; Hematocrit 35.8 % (37.0-47.0); Hemoglobin 10.7 g/dL (11.5-15.3); Lymphocytes # 1.3 10^3/uL (0.8-4.8); Mean Corpuscular HGB Conc 29.9 g/dL (30.0-36.0); Mean Corpuscular Hemoglobin 31.5 pg (28.0-34.0); Mean Corpuscular Volume 105.3 fL (81-99); Mean Platelet Volume 10.9 fL (7.4-10.4); Monocytes # 0.6 10^3/uL (0.2-0.9); Monocytes % 5.4 %; Neutrophils # 9.38 10^3/uL (1.8-7.7); Neutrophils % 81.7 %; Nucleated Red Blood Cells % 0 %; Platelet Count 215 10^3/cmm (130-400); Red Cell Distribution Width 18.6 % (12.1-15.1); White Blood Count 11.5 10^3/uL (4.0-10.0)
[2020-10-17 09:05] LABS: ABG PH Result 7.41 (7.35-7.45); Base Excess ABG 3.8 mmol/L (-2.0-2.0); Blood Gas Allen Test POS; Potassium Level - ABG 3.9 mmol/L (3.5-5.0)
[2020-10-17 09:06] LABS: Blood Gas Drawn By MONRO; Blood Gas Sample Site RR; Blood Gas Sample Type ARTERIAL; Oxygen Device RR
[2020-10-17] MEDS: EPINEPHrine 2.5 MG in sodium chloride 0.9% 250 ML 12.1 MG IV (09:06)
--- NOTE | 2020-10-17 09:06 | ED_ITS ---
HPI - SOB/Dyspnea General: Chief Complaint: Shortness of Breath/Dyspnea Stated Complaint: AMS/ INTUBATED Time Seen by Provider: 10/17/20 08:44 History of Present Illness: HPI Narrative: 80-year-old female presents to the emergency room via EMS on arrival she is intubated. She was found unresponsive this morning by the family. She is given ketamine and rocuronium in the field and intubated by EMS with an ET tube. No other history available she does have scars on her chest consistent with previous CABG. There is no family available when I initially seen the patient. Review of Systems General: Reports: ROS unobtainable due to endotracheal tube PFSH ED PFSH: Medical History Coronary artery disease Essential (primary) hypertension Headache, migraine Hx of myocardial infarction Hyperlipidemia, unspecified Hyperthyroidism Restless legs syndrome Type 2 diabetes mellitus without complications Surgical History History of coronary artery bypass graft CABG x4, 2000 Family History Other CAD (coronary artery disease) Hypertension Myocardial infarct Social History Smoking and tobacco status: never smoked Alcohol intake: current Alcohol intake frequency: holidays/special occasions only Physical Exam Const: COMMON NORMALS: no acute distress GENERAL APPEARANCE: cooperative and comfortable ORIENTATION/CONSCIOUSNESS: Yes awake, Yes oriented to person, Yes oriented to place and Yes oriented to time HENMT: COMMON NORMALS: normocephalic, atraumatic and hearing grossly normal bi laterally HEAD & SCALP: normocephalic and atraumatic Neck/C-Spine: COMMON NORMALS: no JVD Resp: COMMON NORMALS: normal respiratory effort, No retractions, No use of accessory muscles and clear to auscultation bilaterally AUSCULTATION: clear to auscultation bilaterally Cardio: COMMON NORMALS: no JVD, regular rate, regular rhythm and No murmurs present (Cardio) RATE: regular rate RHYTHM: regular rhythm GI: COMMON NORMALS: Soft to palpation and No hepatosplenomegaly present AUSCULTATION: Yes normoactive bowel sounds PALPATION: Yes Soft to palpation, No Tenderness to palpation present (GI), No Guarding due to palpation present (GI) and Yes No hepatosplenomegaly present Extremity: COMMON NORMALS: normal to inspection, capillary refill normal, no clubbing, cyanosis or edema, no calf tenderness and no pedal edema Neuro: SENSORIUM/ORIENTATION: Yes oriented to person, Yes oriented to place and Yes oriented to time Skin: COMMON NORMALS: no rashes or lesions noted GENERAL SKIN EXAM: no rashes or lesions noted Course Vital Signs: Vital signs: Vital Signs Temperature 98.6 F 10/17/20 20:31 Pulse Rate 71 10/17/20 20:31 Respiratory Rate 17 10/18/20 13:02 Blood Pressure 100/64 10/17/20 20:31 Pulse Oximetry 83 L 10/17/20 20:31 MDM - SOB/Dyspnea MDM Narrative: Medical decision making narrative: Work-up patient was found to have a subdural hematoma. She already had significant cardiac difficulties discussed with family via debated whether or not even to intubate her in the field. We had a long discussion with the daughter ultimately decided to make her Do Not Recussitate they would like to extubate her other family members came patient was placed on CPAP and extubated she is hypoxic now but maintaining heart rate in the 70s and 80s will admit her to the private room was [facility] [place]. Lab Data: Labs: Lab Results 10/17/20 10/17/20 10/17/20 Range/Units 08:10 08:10 08:10 WBC 11.5 H (4.0-10.0) 10^3/ uL RBC 3.40 L (4.1-5.3) 10^6/u L Hgb 10.7 L (11.5-15.3) g/dL Hct 35.8 L (37.0-47.0) % MCV 105.3 H (81-99) fL MCH 31.5 (28.0-34.0) pg MCHC 29.9 L (30.0-36.0) g/dL RDW 18.6 H (12.1-15.1) % Plt Count 215 (130-400) 10^3/c mm MPV 10.9 H (7.4-10.4) fL Neut % (Auto) 81.7 % Lymph % (Auto) 11.0 % Brooks % (Auto) 5.4 % Eos % (Auto) 1.1 % Baso % (Auto) 0.3 % Neut # (Auto) 9.38 H (1.8-7.7) 10^3/u L Lymph # (Auto) 1.3 (0.8-4.8) 10^3/u L Brooks # (Auto) 0.6 (0.2-0.9) 10^3/u L Eos # (Auto) 0.1 (0.0-0.8) 10^3/u L Baso # (Auto) 0.0 (0.0-0.1) 10^3/u L Nucleated RBC % (a uto) 0 % Nucleated RBCs # 0.0 /100WBC PT 14.60 (12.1-14.9) SECO NDS INR 1.10 (0.8-1.2) APTT 30.1 (23.9-36.7) SECO NDS Specimen Type Sample Site ABG pH (7.35-7.45) ABG pCO2 (35-45) mmHg ABG pO2 (80.0-100.0) mmH g ABG HCO3 (22-26) mmol/L ABG O2 Saturation ABG Base Excess (-2.0-2.0) mmol/ L [place]ura Test A-a O2 Gradient Hematocrit (37-47) % Hgb O2 Saturation (95-100) % Carboxyhemoglobin (0.4-20.1) %THgb Methemoglobin (0.4-1.5) % Total Hemoglobin (12-16) g/dL Ionized Calcium (1.1-1.4) mmol/L O2 Delivery Device FiO2 % Specimen Drawn By Tractor Crane Engineer ID Crit Value Read Ba ck Blood Gas Notified Time Sodium 140 (136-145) mmol/L Potassium 4.1 (3.5-5.1) mmol/L Chloride 100 (98-107) mmol/L Carbon Dioxide 30 H (22-29) mmol/L Anion Gap 14.1 (5-19) BUN 30 H (8-23) mg/dL Creatinine 1.4 H (0.5-0.9) mg/dL GFR Calculation Not Reportable Glucose 164 H (65-115) mg/dL Calculated Osmolal ity 300 H (285-295) mOsm/k g Lactate (0.5-2.2) mmol/L Calcium 9.7 (8.5-10.5) mg/dL Total Bilirubin 1.7 H (0.15-1.2) mg/dL AST 32 (0-32) U/L ALT 18 (0-33) U/L Alkaline Phosphata se 76 (35-105) IU/L Ammonia (11-51) umol/L Troponin T Baselin e (0-10) ng/L Troponin T 120 [place] (0-10) ng/L Delta Troponin T (0-10) ABS# Total Protein 7.4 (6.6-8.7) g/dL Albumin 4.0 (3.5-5.2) g/dL Globulin 3.4 (1.3-4.6) g/dL Lipase 73 H (13-60) U/L Urine Color (Yellow) Urine Appearance (CLEAR) Urine pH (5-7) Ur Specific Gravit y (1.005-1.030) Urine Protein (Negative) Urine Glucose (UA) (Normal) Urine Ketones (Negative) Urine Blood (Negative) Urine Nitrate (Negative) Urine Bilirubin (Negative) Urine Urobilinogen (Negative) mg/dL Ur Leukocyte Kalani ase (Negative) Urine RBC (0-2) /hpf Urine WBC (0-5) /hpf Ur Squamous Epith Cells (0-5) /hpf Amorphous Sediment Urine Bacteria (NONE) /hpf Urine Mucus /hpf Salicylates < 0.3 L (3-10) mg/dL Urine Opiates Scre en (Negative) ng/mL Acetaminophen < 5.0 L (10-30) ug/mL Ur Barbiturates Sc reen (Negative) ng/mL Ur Phencyclidine S crn (Negative) ng/mL Ur Amphetamines Sc reen (Negative) ng/mL U Benzodiazepines Scrn (Negative) ng/mL Urine Cocaine Scre en (Negative) ng/mL U Marijuana (THC) Screen (Negative) ng/mL Ethyl Alcohol < 10 (0-10) mg/dL Serum Ketones (Negative) Influenza Type A A g (Negative) Influenza Type B A g (Negative) 10/17/20 10/17/20 10/17/20 Range/Units 08:10 08:10 08:10 WBC (4.0-10.0) 10^3/ uL RBC (4.1-5.3) 10^6/u L Hgb (11.5-15.3) g/dL Hct (37.0-47.0) % MCV (81-99) fL MCH (28.0-34.0) pg MCHC (30.0-36.0) g/dL RDW (12.1-15.1) % Plt Count (130-400) 10^3/c mm MPV (7.4-10.4) fL Neut % (Auto) % Lymph % (Auto) % Brooks % (Auto) % Eos % (Auto) % Baso % (Auto) % Neut # (Auto) (1.8-7.7) 10^3/u L Lymph # (Auto) (0.8-4.8) 10^3/u L Brooks # (Auto) (0.2-0.9) 10^3/u L Eos # (Auto) (0.0-0.8) 10^3/u L Baso # (Auto) (0.0-0.1) 10^3/u L Nucleated RBC % (a uto) % Nucleated RBCs # /100WBC PT (12.1-14.9) SECO NDS INR (0.8-1.2) APTT (23.9-36.7) SECO NDS Specimen Type Sample Site ABG pH (7.35-7.45) ABG pCO2 (35-45) mmHg ABG pO2 (80.0-100.0) mmH g ABG HCO3 (22-26) mmol/L ABG O2 Saturation ABG Base Excess (-2.0-2.0) mmol/ L [place] Test A-a O2 Gradient Hematocrit (37-47) % Hgb O2 Saturation (95-100) % Carboxyhemoglobin (0.4-20.1) %THgb Methemoglobin (0.4-1.5) % Total Hemoglobin (12-16) g/dL Ionized Calcium (1.1-1.4) mmol/L O2 Delivery Device FiO2 % Specimen Drawn By Tractor Crane Engineer ID Crit Value Read Ba ck Blood Gas Notified Time Sodium (136-145) mmol/L Potassium (3.5-5.1) mmol/L Chloride (98-107) mmol/L Carbon Dioxide (22-29) mmol/L Anion Gap (5-19) BUN (8-23) mg/dL Creatinine (0.5-0.9) mg/dL GFR Calculation Glucose (65-115) mg/dL Calculated Osmolal ity (285-295) mOsm/k g Lactate (0.5-2.2) mmol/L Calcium (8.5-10.5) mg/dL Total Bilirubin (0.15-1.2) mg/dL AST (0-32) U/L ALT (0-33) U/L Alkaline Phosphata se (35-105) IU/L Ammonia 26 (11-51) umol/L Troponin T Baselin e 166 H* (0-10) ng/L Troponin T 120 [place] (0-10) ng/L Delta Troponin T (0-10) ABS# Total Protein (6.6-8.7) g/dL Albumin (3.5-5.2) g/dL Globulin (1.3-4.6) g/dL Lipase (13-60) U/L Urine Color (Yellow) Urine Appearance (CLEAR) Urine pH (5-7) Ur Specific Gravit y (1.005-1.030) Urine Protein (Negative) Urine Glucose (UA) (Normal) Urine Ketones (Negative) Urine Blood (Negative) Urine Nitrate (Negative) Urine Bilirubin (Negative) Urine Urobilinogen (Negative) mg/dL Ur Leukocyte Kalani ase (Negative) Urine RBC (0-2) /hpf Urine WBC (0-5) /hpf Ur Squamous Epith Cells (0-5) /hpf Amorphous Sediment Urine Bacteria (NONE) /hpf Urine Mucus /hpf Salicylates (3-10) mg/dL Urine Opiates Scre en (Negative) ng/mL Acetaminophen (10-30) ug/mL Ur Barbiturates Sc reen (Negative) ng/mL Ur Phencyclidine S crn (Negative) ng/mL Ur Amphetamines Sc reen (Negative) ng/mL U Benzodiazepines Scrn (Negative) ng/mL Urine Cocaine Scre en (Negative) ng/mL U Marijuana (THC) Screen (Negative) ng/mL Ethyl Alcohol (0-10) mg/dL Serum Ketones Negative (Negative) Influenza Type A A g (Negative) Influenza Type B A g (Negative) 10/17/20 10/17/2021 Range/Units 08:43 08:52 08:56 WBC (4.0-10.0) 10^3/ uL RBC (4.1-5.3) 10^6/u L Hgb (11.5-15.3) g/dL Hct (37.0-47.0) % MCV (81-99) fL MCH (28.0-34.0) pg MCHC (30.0-36.0) g/dL RDW (12.1-15.1) % Plt Count (130-400) 10^3/c mm MPV (7.4-10.4) fL Neut % (Auto) % Lymph % (Auto) % Brooks % (Auto) % Eos % (Auto) % Baso % (Auto) % Neut # (Auto) (1.8-7.7) 10^3/u L Lymph # (Auto) (0.8-4.8) 10^3/u L Brooks # (Auto) (0.2-0.9) 10^3/u L Eos # (Auto) (0.0-0.8) 10^3/u L Baso # (Auto) (0.0-0.1) 10^3/u L Nucleated RBC % (a uto) % Nucleated RBCs # /100WBC PT (12.1-14.9) SECO NDS INR (0.8-1.2) APTT (23.9-36.7) SECO NDS Specimen Type Arterial Sample Site Rr ABG pH 7.41 (7.35-7.45) ABG pCO2 46.0 H (35-45) mmHg ABG pO2 258.0 H (80.0-100.0) mmH g ABG HCO3 29.0 H (22-26) mmol/L ABG O2 Saturation Not Reportable ABG Base Excess 3.8 H (-2.0-2.0) mmol/ L [place] Test Pos A-a O2 Gradient Not Reportable Hematocrit 28.0 L (37-47) % Hgb O2 Saturation 99.1 (95-100) % Carboxyhemoglobin 1.7 (0.4-20.1) %THgb Methemoglobin 0.2 L (0.4-1.5) % Total Hemoglobin 9.1 L (12-16) g/dL Ionized Calcium 1.2 (1.1-1.4) mmol/L O2 Delivery Device Rr FiO2 100.0 % Specimen Drawn By [place] Tractor Crane Engineer ID Angelo Crit Value Read Ba ck Horcu Blood Gas Notified Time 0907 Sodium 145.0 H (136-145) mmol/L Potassium 3.9 (3.5-5.1) mmol/L Chloride (98-107) mmol/L Carbon Dioxide (22-29) mmol/L Anion Gap (5-19) BUN (8-23) mg/dL Creatinine (0.5-0.9) mg/dL GFR Calculation Glucose 171.0 H (65-115) mg/dL Calculated Osmolal ity (285-295) mOsm/k g Lactate (0.5-2.2) mmol/L Calcium (8.5-10.5) mg/dL Total Bilirubin (0.15-1.2) mg/dL AST (0-32) U/L ALT (0-33) U/L Alkaline Phosphata se (35-105) IU/L Ammonia (11-51) umol/L Troponin T Baselin e (0-10) ng/L Troponin T 120 [place] (0-10) ng/L Delta Troponin T (0-10) ABS# Total Protein (6.6-8.7) g/dL Albumin (3.5-5.2) g/dL Globulin (1.3-4.6) g/dL Lipase (13-60) U/L Urine Color Dark yellow (Yellow) Urine Appearance Clear (CLEAR) Urine pH 6.5 (5-7) Ur Specific Gravit y 1.015 (1.005-1.030) Urine Protein 1+ H (Negative) Urine Glucose (UA) Norm (Normal) Urine Ketones 1+ H (Negative) Urine Blood Neg (Negative) Urine Nitrate Negative (Negative) Urine Bilirubin 1+ H (Negative) Urine Urobilinogen 4+ H (Negative) mg/dL Ur Leukocyte Kalani ase Negative (Negative) Urine RBC 0-4 H (0-2) /hpf Urine WBC 0-4 H (0-5) /hpf Ur Squamous Epith Cells 10-15 H (0-5) /hpf Amorphous Sediment Not Reportable Urine Bacteria 1+ H (NONE) /hpf Urine Mucus Trace /hpf Salicylates (3-10) mg/dL Urine Opiates Scre en Negative (Negative) ng/mL Acetaminophen (10-30) ug/mL Ur Barbiturates Sc reen Negative (Negative) ng/mL Ur Phencyclidine S crn Negative (Negative) ng/mL Ur Amphetamines Sc reen Negative (Negative) ng/mL U Benzodiazepines Scrn Negative (Negative) ng/mL Urine Cocaine Scre en Negative (Negative) ng/mL U Marijuana (THC) Screen Negative (Negative) ng/mL Ethyl Alcohol (0-10) mg/dL Serum Ketones (Negative) Influenza Type A A g (Negative) Influenza Type B A g (Negative) 10/17/20 10/17/20 10/17/20 Range/Units 09:00 10:11 10:11 WBC (4.0-10.0) 10^3/ uL RBC (4.1-5.3) 10^6/u L Hgb (11.5-15.3) g/dL Hct (37.0-47.0) % MCV (81-99) fL MCH (28.0-34.0) pg MCHC (30.0-36.0) g/dL RDW (12.1-15.1) % Plt Count (130-400) 10^3/c mm MPV (7.4-10.4) fL Neut % (Auto) % Lymph % (Auto) % Brooks % (Auto) % Eos % (Auto) % Baso % (Auto) % Neut # (Auto) (1.8-7.7) 10^3/u L Lymph # (Auto) (0.8-4.8) 10^3/u L Brooks # (Auto) (0.2-0.9) 10^3/u L Eos # (Auto) (0.0-0.8) 10^3/u L Baso # (Auto) (0.0-0.1) 10^3/u L Nucleated RBC % (a uto) % Nucleated RBCs # /100WBC PT (12.1-14.9) SECO NDS INR (0.8-1.2) APTT (23.9-36.7) SECO NDS Specimen Type Sample Site ABG pH (7.35-7.45) ABG pCO2 (35-45) mmHg ABG pO2 (80.0-100.0) mmH g ABG HCO3 (22-26) mmol/L ABG O2 Saturation ABG Base Excess (-2.0-2.0) mmol/ L [place] Test A-a O2 Gradient Hematocrit (37-47) % Hgb O2 Saturation (95-100) % Carboxyhemoglobin (0.4-20.1) %THgb Methemoglobin (0.4-1.5) % Total Hemoglobin (12-16) g/dL Ionized Calcium (1.1-1.4) mmol/L O2 Delivery Device FiO2 % Specimen Drawn By Tractor Crane Engineer ID Crit Value Read Ba ck Blood Gas Notified Time Sodium (136-145) mmol/L Potassium (3.5-5.1) mmol/L Chloride (98-107) mmol/L Carbon Dioxide (22-29) mmol/L Anion Gap (5-19) BUN (8-23) mg/dL Creatinine (0.5-0.9) mg/dL GFR Calculation Glucose (65-115) mg/dL Calculated Osmolal ity (285-295) mOsm/k g Lactate 2.6 H (0.5-2.2) mmol/L Calcium (8.5-10.5) mg/dL Total Bilirubin (0.15-1.2) mg/dL AST (0-32) U/L ALT (0-33) U/L Alkaline Phosphata se (35-105) IU/L Ammonia (11-51) umol/L Troponin T Baselin e (0-10) ng/L Troponin T 120 [place] 156.3 H (0-10) ng/L Delta Troponin T -9.7 L (0-10) ABS# Total Protein (6.6-8.7) g/dL Albumin (3.5-5.2) g/dL Globulin (1.3-4.6) g/dL Lipase (13-60) U/L Urine Color (Yellow) Urine Appearance (CLEAR) Urine pH (5-7) Ur Specific Gravit y (1.005-1.030) Urine Protein (Negative) Urine Glucose (UA) (Normal) Urine Ketones (Negative) Urine Blood (Negative) Urine Nitrate (Negative) Urine Bilirubin (Negative) Urine Urobilinogen (Negative) mg/dL Ur Leukocyte Kalani ase (Negative) Urine RBC (0-2) /hpf Urine WBC (0-5) /hpf Ur Squamous Epith Cells (0-5) /hpf Amorphous Sediment Urine Bacteria (NONE) /hpf Urine Mucus /hpf Salicylates (3-10) mg/dL Urine Opiates Scre en (Negative) ng/mL Acetaminophen (10-30) ug/mL Ur Barbiturates Sc reen (Negative) ng/mL Ur Phencyclidine S crn (Negative) ng/mL Ur Amphetamines Sc reen (Negative) ng/mL U Benzodiazepines Scrn (Negative) ng/mL Urine Cocaine Scre en (Negative) ng/mL U Marijuana (THC) Screen (Negative) ng/mL Ethyl Alcohol (0-10) mg/dL Serum Ketones (Negative) Influenza Type A A g Negative (Negative) Influenza Type B A g Negative (Negative) Discharge Plan Discharge Patient Disposition: Placed in Observation Admit Provider: Seth Asif Clinical Impression: Subdural hematoma Discharge Diet: Advance as tolerated Discharge Activity: Increase activity as tolerated Coding Level of Care Code ED Commercial Teller for Leanne Fwd Exam Comprehensive
[2020-10-17 09:07] LABS: Carboxyhemoglobin 1.7 %THgb (0.4-20.1); HGB O2 Sat 99.1 % (95-100); Ionized Calcium Level - ABG 1.2 mmol/L (1.1-1.4); Methemoglobin 0.2 % (0.4-1.5); Total Hemoglobin 9.1 g/dL (12-16)
--- NOTE | 2020-10-17 09:09 | PC.NURSE ---
Blood Sugar 173
[2020-10-17 09:17] LABS: Ketone (Acetest) Serum Negative (Negative)
[2020-10-17 09:18] LABS: Amphetamines Screen Urine Negative (Negative); Barbiturates Screen Urine Negative (Negative); Benzodiazepines Screen Urine Negative (Negative); Cocaine Screen Urine Negative (Negative); Opiate Screen Urine Negative (Negative); PCP Screen Urine Negative (Negative); THC Screen Urine Negative (Negative)
[2020-10-17 09:24] LABS: Alanine Aminotransferase 18 U/L (0-33); Alkaline Phosphatase 76 IU/L (35-105); Aspartate Amino Transferase 32 U/L (0-32); Blood Urea Nitrogen 30 mg/dL (8-23); Calcium 9.7 mg/dL (8.5-10.5); Carbon Dioxide 30 mmol/L (22-29); Chloride 100 mmol/L (98-107); Globulin 3.4 g/dL (1.3-4.6); Glucose 164 mg/dL (65-115); Lipase 73 U/L (13-60); Osmolality Calculated 300 mOsm/kg (285-295); Sodium 140 mmol/L (136-145); Total Bilirubin 1.7 mg/dL (0.15-1.2); Total Protein 7.4 g/dL (6.6-8.7)
[2020-10-17 09:27] LABS: Partial Thromboplastin Time 30.1 SECONDS (23.9-36.7)
[2020-10-17 09:32] LABS: Acetaminophen < 5.0 ug/mL (10-30); Alcohol Level < 10 mg/dL (0-10); Salicylate < 0.3 mg/dL (3-10)
[2020-10-17 09:33] LABS: Anion Gap 14.1 (5-19); Potassium 4.1 mmol/L (3.5-5.1)
[2020-10-17 09:43] LABS: Troponin(5th) Baseline 166 ng/L (0-10)
[2020-10-17 10:34] LABS: Urine Appearance Clear (CLEAR); Urine Color Dark Yellow (Yellow)
[2020-10-17 10:35] LABS: Add Urine Culture? No; Add Urine Microscopic? YES; Bacteria Urine 1+ /hpf; Bilirubin Urine 1+ (Negative); Blood Urine Neg (Negative); Glucose Urine UA Norm (Normal); Ketones Urine 1+ (Negative); Leukocyte Esterase Urine Negative (Negative); Mucus Urine TRACE /hpf; Nitrate Urine Negative (Negative); Protein Urine 1+ (Negative); RBC Urine 0-4 /hpf (0-2); Specific Gravity, Urine 1.015 (1.005-1.030); Urobilinogen Urine 4+ mg/dL (Negative); WBC Urine 0-4 /hpf (0-5); pH Urine 6.5 (5-7)
[2020-10-17 10:40] LABS: Influenza A by IFA Negative (Negative); Influenza B by IFA Negative (Negative)
[2020-10-17 10:41] LABS: Ammonia 26 umol/L (11-51)
[2020-10-17 10:55] LABS: Troponin 5 2HR 156.3 ng/L (0-10); Troponin 5 2HR Delta -9.7 ABS# (0-10)
[2020-10-17 10:58] LABS: Lactate (Lactic Acid level) 2.6 mmol/L (0.5-2.2)
[2020-10-17] MEDS: morphine 4 mg/mL SDV 1 mL 2 MG IVP (14:22)
[2020-10-17] MEDS: LORazepam 2 mg/mL INJ 1 mL 1 MG IVP (14:22)
--- NOTE | 2020-10-17 16:52 | PM.HP ---
Providers/Chief Complaint Admitting Physician: Seth Asif Primary Care Provider: TIMMY York Chief Complaint: AMS/ INTUBATED History of Present Illness 80-year-old female with a past medical history significant for anxiety, depression, restless leg syndrome, hypothyroidism, hypertension, dyslipidemia, diabetes mellitus, peripheral neuropathy, CVA in 2017, coronary artery disease with history of CABG, and chronic systolic heart failure with and EF of 50% with moderate aortic valve stenosis (AMELIA 1.6cm2) in 2017 which had significantly to an EF of 20% with now severe aortic stenosis (AMELIA 0.5 cm2) who found down by her family member earlier today. This stated that she was on the ground and difficult to arouse. EMS was called at which time patient was found to have hypoxia and immediately intubated and placed on ventilator. This was performed on arrived to hospital. Upon arrival to emergency room she did have a CT head performed without contrast which showed large right-sided subdural hematoma resulting in 1.4 cm of midline shift to the left with focal effacement with edema and tiny parenchymal hemorrhage in the right basal ganglia. Laboratory workup showed a WBC of 11.5, hemoglobin of 10.7, hematocrit 35.8 and platelet count 215. arterial blood gas showed a pH of 7.41, pCO2 O2 58, bicarb 29.0. sodium 140, potassium 4.1, chloride 100, bicarb 30, BUN 30 and creatinine of 1.4. Troponin T baseline was 166, and 120 minutes was 156. patient's family was at bedside. Dated discuss the care with emergency room physician and myself. Decided to proceed with comfort care and extubate. Patient was started on comfort care measures in emergency room. Was not arousable at the time of my evaluation. Review of Systems General: Reports: ROS unobtainable due to medical condition and ROS unobtainable due to mental status Medications/Allergies Home Medications Medication Instructions Recorded Confirmed Last Taken Type CBD 1 tab PO BEDTIME@09/10/20 10/17/20 10/08/20 History aspirin 81 mg tablet,delayed 81 mg PO DAILY@09/10/20 10/17/20 10/07/20 History release atorvastatin 40 mg tablet 40 mg PO DAILY@09/10/20 10/17/20 10/08/20 History cholecalciferol (vitamin D3) 50 50 mcg PO DAILY@09/10/20 10/17/20 10/08/20 History mcg (2,000 unit) capsule clopidogrel 75 mg tablet 75 mg PO DAILY@09/10/20 10/17/20 10/08/20 History duloxetine 30 mg capsule,delayed 30 mg PO DAILY@09/10/20 10/17/20 10/08/20 History release gabapentin 300 mg capsule See Rx Instructions .ROUTE 09/10/20 10/17/20 10/08/20 History .COMPLEX cap irbesartan 300 mg tablet 300 mg PO DAILY@09/10/20 10/17/20 10/08/20 History ropinirole 0.25 mg tablet 0.25 - 0.5 mg PO DAILY@219909/10/20 10/17/20 10/07/20 History vitamin B comp and C no.3 15 mg-10 1 cap PO DAILY@0800 09/10/20 10/17/20 10/08/20 History mg-50 mg-5 mg-300 mg capsule OxyContin 1 tab PO Q8H PRN 10/08/20 10/17/20 10/07/20 History acetaminophen [Tylenol 8 Hour] 650 mg PO Q8H PRN 10/08/20 10/17/20 10/07/20 History furosemide 40 mg PO DAILY@10/08/20 10/17/20 10/08/20 History levothyroxine 150 mcg PO DAILY@10/08/20 10/17/20 10/08/20 History acetaminophen [Tylenol Extra 1,000 mg PO PRN 10/17/20 10/17/20 Unknown History Strength] cyanocobalamin (vitamin B-12) 50 mcg PO QAM 10/17/20 10/17/20 Unknown History [Vitamin B-12] insulin detemir U-100 [Levemir 24 unit SUBCUT DAILY@10/17/20 10/17/20 10/16/20 History FlexTouch U-100 Insuln] see pharmacy comment metoprolol succinate 50 mg PO DAILY@10/17/20 10/17/20 Unknown History potassium chloride 10 meq PO BID@10/17/20 10/17/20 Unknown History Allergies Allergy/AdvReac Type Severity Reaction Status Date / Time No Known Allergies Allergy Verified 10/08/20 10:24 PFSH Acute PFSH: Medical History Coronary artery disease Essential (primary) hypertension Headache, migraine Hx of myocardial infarction Hyperlipidemia, unspecified Hyperthyroidism Restless legs syndrome Type 2 diabetes mellitus without complications Surgical History History of coronary artery bypass graft CABG x4, 1999 Family History Other CAD (coronary artery disease) Hypertension Myocardial infarct Social History Smoking and tobacco status: never smoked Alcohol intake: current Alcohol intake frequency: holidays/special occasions only Vitals/I&O/Wt Last Vital Signs Temp 98.5 F 10/17/20 16:34 Pulse 84 10/17/20 16:34 Resp 15 10/17/20 16:34 BP 96/68 10/17/20 16:34 Pulse Ox 84 L 10/17/20 16:34 10/17/20 10/17/20 10/17/20 06:59 14:59 22:59 Intake Total 28.032 / 28.032 Balance 28.032 / 28.032 Weight last 48 hrs Weight 81.647 kg Physical Exam Narrative: EXAM NARRATIVE: General- unresponsive CVS- tachycardic Chest- mildly labored respiration Extremities -no edema neuro- unable to assess Urinary Catheter Management^: Mcgrath Latex: Cath Placed During This Visit: yes Reason for Continuing Indwelling Catheter: Accurate Measurement of Urinary Output in Critically Ill Patients Urinary Catheter Date of Insertion: 10/17/20 Urinary Catheter Time of Insertion: 09:00 Data : 10/17/20 08:10 10/17/20 08:10 Micro: Microbiology 10/17/20 10:11 Blood Culture - Preliminary Blood SPECIMEN COLLECTED 10/17/20 09:13 Blood Culture - Preliminary Blood SPECIMEN COLLECTED A&P Assessment and plan (1) Subdural hematoma: Status: Acute (2) Aortic stenosis, severe: Status: Acute (3) Acute exacerbation of CHF (congestive heart failure): Status: Acute Qualifiers: Heart failure type: unspecified Qualified Code(s): I50.9 - Heart failure, unspecified (4) Acute renal failure: Status: Acute Qualifiers: Acute renal failure type: unspecified Qualified Code(s): N17.9 - Acute kidney failure, unspecified (5) Mental status alteration: Status: Acute Qualifiers: Altered mental status type: unspecified Qualified Code(s): R41.82 - Altered mental status, unspecified patient is admitted to the hospital for comfort care measures. Comfort care order set was placed. Will consult hospice / case management did a.m.. All aspects of this were discussed with patient's family. No further laboratory diagnostic testing. Attestations Medical Necessity Statement*: Patient is admitted to the hospital for initiation of comfort care measures. Anticipate over 2 midnights stay in hospital. Time Spent in Patient Care: Greater than 35 minutes Coding Level of Care Code Acute Termite Exterminator for g Fwd Diagnoses Subdural hematoma S06.5X9A Aortic stenosis, severe I35.0 Acute exacerbation of CHF (congestive heart failure) I50.9 Heart failure type: unspecified Acute renal failure N17.9 Acute renal failure type: unspecified Mental status alteration R41.82 Altered mental status type: unspecified
--- NOTE | 2020-10-18 10:46 | PC.SLP ---
The pt is not arouseable, and is not able to participate in a [employer]CE/dysphagia eval at this time.
[2020-10-18 13:02] VITALS: RESP 17
[2020-10-18] MEDS: morphine 4 mg/mL SDV 1 mL IVP (13:02)
--- NOTE | 2020-10-18 15:33 | P.DS_ITS ---
Discharge Providers Date of Admission: 10/17/20 14:52 Date of Discharge: October 18, 2020 Attending Provider at Admission: Seth Asif Attending Provider at Discharge: Seth Asif Primary Care Provider: TIMMY York Diagnoses at Discharge Discharge Diagnosis (1) Subdural hematoma: Status: Acute (2) Aortic stenosis, severe: Status: Acute (3) Acute exacerbation of CHF (congestive heart failure): Status: Acute Qualifiers: Heart failure type: unspecified Qualified Code(s): I50.9 - Heart failure, unspecified (4) Acute renal failure: Status: Acute Qualifiers: Acute renal failure type: unspecified Qualified Code(s): N17.9 - Acute kidney failure, unspecified (5) Mental status alteration: Status: Acute Qualifiers: Altered mental status type: unspecified Qualified Code(s): R41.82 - Altered mental status, unspecified Reason for Visit Reason for Visit: AMS/ INTUBATED Hospital Course Hospital Course 80-year-old female with a past medical history significant for anxiety, depression, restless leg syndrome, hypothyroidism, hypertension, dyslipidemia, diabetes mellitus, peripheral neuropathy, CVA in 2017, coronary artery disease with history of CABG, and chronic systolic heart failure with and EF of 50% with moderate aortic valve stenosis (AMELIA 1.6cm2) in 2017 which had significantly to an EF of 20% with now severe aortic stenosis (AMELIA 0.5 cm2) who found down by her family member earlier today. This stated that she was on the ground and difficult to arouse. EMS was called at which time patient was found to have hypoxia and immediately intubated and placed on ventilator. This was performed on arrived to hospital. Upon arrival to emergency room she did have a CT head performed without contrast which showed large right-sided subdural hematoma resulting in 1.4 cm of midline shift to the left with focal effacement with edema and tiny parenchymal hemorrhage in the right basal ganglia. Laboratory workup showed a WBC of 11.5, hemoglobin of 10.7, hematocrit 35.8 and platelet count 215. arterial blood gas showed a pH of 7.41, pCO2 O2 58, bicarb 29.0. sodium 140, potassium 4.1, chloride 100, bicarb 30, BUN 30 and creatinine of 1.4. Troponin T baseline was 166, and 120 minutes was 156. patient's family was at bedside. Dated discuss the care with emergency room physician and myself. Decided to proceed with comfort care and extubate. Patient was started on comfort care measures in emergency room. Shortly after admission patient's family decided to proceed with home with hospice. This was arranged and comfort medications were prescribed. Physical Exam Narrative: EXAM NARRATIVE: General- unresponsive CVS- tachycardic Chest- mildly labored respiration Extremities -no edema neuro- unable to assess Urinary Catheter Management^: Mcgrath Latex: Cath Placed During This Visit: yes Reason for Continuing Indwelling Catheter: Not indwelling catheter Urinary Catheter Date of Insertion: 10/17/20 Urinary Catheter Time of Insertion: 09:00 Discharge Data Data Completed and Pending: Completed Studies During Hospitalization Category Date Time Status CT head wo con* 7 0450 Stat Cat Scan 10/17/20 08:42 Completed XR chest 1V gustavo ble 32594 Stat Exams 10/17/20 08:42 Completed Pending at discharge Category Date Time Status Blood Culture Sta t Lab 10/17/20 10:11 Results Vitals: Last Vital Signs Temp 98.6 F 10/17/20 20:31 Pulse 71 10/17/20 20:31 Resp 17 10/18/20 13:02 BP 100/64 10/17/20 20:31 Pulse Ox 83 L 10/17/20 20:31 Discharge Plan Discharge Patient Disposition: Hospice - Home Condition: Fair Prescriptions: New morphine concentrate 100 mg/5 mL (20 mg/mL) solution 5 mg PO Q6H PRN (Reason: pain) Qty: 30 RF: 0 Lorazepam Intensol 2 mg/mL concentrate 0.5 mg PO Q8H PRN (Reason: agitation) Qty: 30 RF: 0 scopolamine base 1 mg over 3 days patch 3 day 1 patch transdermal Q3D PRN (Reason: secretions) Qty: 10 RF: 0 Discontinued gabapentin 300 mg capsule See Rx Instructions .ROUTE .COMPLEX RF: 0 aspirin [Adult Aspirin Regimen] 81 mg tablet,delayed release (DR/EC) 81 mg PO DAILY@06 RF: 0 atorvastatin 40 mg tablet 40 mg PO DAILY@21 RF: 0 ropinirole 0.25 mg tablet 0.25 - 0.5 mg PO DAILY@2200 RF: 0 duloxetine 30 mg capsule,delayed release(DR/EC) 30 mg PO DAILY@21 RF: 0 irbesartan 300 mg tablet 300 mg PO DAILY@21 RF: 0 clopidogrel 75 mg tablet 75 mg PO DAILY@06 RF: 0 B Complex Plus Vitamin C [id number] mg capsule 1 cap PO DAILY@0800 RF: 0 cholecalciferol (vitamin D3) 50 mcg (2,000 unit) capsule 50 mcg PO DAILY@06 RF: 0 CBD capsule 1 tab PO BEDTIME@21 RF: 0 furosemide 40 mg tablet 40 mg PO DAILY@06 RF: 0 levothyroxine 150 mcg tablet 150 mcg PO DAILY@06 RF: 0 acetaminophen [Tylenol 8 Hour] 650 mg Tablet Extended Release 650 mg PO Q8H PRN (Reason: Pain) RF: 0 OxyContin 1 tab PO Q8H PRN (Reason: Pain) RF: 0 Hold Instructions: Resume on 10/18/20. acetaminophen [Tylenol Extra Strength] 500 mg Tablet 1,000 mg PO PRN RF: 0 Vitamin B-12 50 mcg Tablet 50 mcg PO QAM RF: 0 Levemir FlexTouch U-100 Insuln 100 unit/mL (3 mL) insulin pen 24 unit SUBCUT DAILY@ RF: 0 potassium chloride 10 mEq capsule, extended release 10 meq PO BID@ RF: 0 metoprolol succinate 100 mg tablet extended release 24 hr 50 mg PO DAILY@ RF: 0 Discharge Orders: Discharge Order (Routine); Ordered 10/18/20 Ordered By: Seth Asif Referrals: [facility] ([facility]) [Outside] Shania Kennedy FNP [Primary Care Provider] - Discharge Diet: Advance as tolerated Discharge Activity: Increase activity as tolerated Patient Instructions: Lorazepam (By mouth), Morphine, Slow Release (By mouth), Hospice Care, Heart Failure (DC), CHF Stoplight Discharge Attestations Time Spent in Discharge Care*: greater than 30 min Specific Discharge Activities: educating and/or supporting family/caregiver, discussing with pcp/other providers, discussing with pillowcase folder/social workers/dc planners, documenting/other paperwork and evaluating patient/reviewing data Status at Discharge: Cognitive status at discharge: severely impaired cognition , Functional status at discharge: bed bound Overall status at discharge: patient is not back to baseline Quality Metrics Clinical Quality Measures During this hospital stay, did patient experience: None Coding Level of Care Code Acute Follow Up Specialist for Chg Fwd Diagnoses Subdural hematoma S06.5X9A Aortic stenosis, severe I35.0 Acute exacerbation of CHF (congestive heart failure) I50.9 Heart failure type: unspecified Acute renal failure N17.9 Acute renal failure type: unspecified Mental status alteration R41.82 Altered mental status type: unspecified
[2020-10-18 17:00] VITALS: RESP 17
--- NOTE | 2020-10-18 17:47 | PC.NURSE ---
Patient discharged at this time with EMS staff. Patient discharged home on Hospice.
== END 2020-10-18 17:00 | disposition hospice, home (50) ==
LOC: ER 14:59 → MEDSURG 15:04
PROVIDERS: Nurse Practitioner Family; Admitting Provider Hospitalist; Emergency Provider Family Medicine; PCP Registered Nurse; Visit Provider Hospitalist
DX: S06.5X9A Traumatic subdural hemorrhage with loss of consciousness of unspecified duration, initial encounter (principal); W19.XXXA Unspecified fall, initial encounter; I35.0 Nonrheumatic aortic (valve) stenosis; I50.22 Chronic systolic (congestive) heart failure; I11.0 Hypertensive heart disease with heart failure; N17.9 Acute kidney failure, unspecified; R41.82 Altered mental status, unspecified; F41.9 Anxiety disorder, unspecified; F32.9 Major depressive disorder, single episode, unspecified; E03.9 Hypothyroidism, unspecified; E11.42 Type 2 diabetes mellitus with diabetic polyneuropathy; Z86.73 Personal history of transient ischemic attack (TIA), and cerebral infarction without residual deficits; I25.10 Atherosclerotic heart disease of native coronary artery without angina pectoris; Z95.1 Presence of aortocoronary bypass graft; Z79.82 Long term (current) use of aspirin; E78.5 Hyperlipidemia, unspecified; Z95.5 Presence of coronary angioplasty implant and graft
CPT/HCPCS: 12345; 36600; 51702; 70450; 71045; 80051; 80053; 80306; 80307; 81001; 82009; 82140; 82330; 82805; 83605; 83690; 84484; 85025; 85610; 85730; 87040; 87804; 93005; 94002; 94799; 96365; 96366; 96375; 99284; 99291; G0378; J0171; J2060; J2270; J7050